=== PATIENT | male | born 1970 | race Hispanic/Latino ===

== ENCOUNTER 2018-06-17 18:35 | Emergency (ER) | payer BC, SELFPAY ==
[2018-06-17 21:02] LABS: Absolute Lymphocytes (CBC) 2.3 K/uL (0.7-4.9); Absolute Monocytes 0.5 K/uL (0.1-1.3); Absolute Neutrophil 4.4 K/uL (1.8-8.0); Basophils % 0.8 % (0-1.3); Eosinophils % 2.5 % (0-4.4); Hematocrit 40.5 % (39.6-49.0); Lymphocytes % 31.2 % (15.3-44.8); MCH 32.3 pg (27.0-35.0); MCV 90.6 fL (80-100); Monocytes % 6.5 % (3.3-12.3); RBC Red Blood Cell Count 4.47 M/uL (4.33-5.43)
[2018-06-17 21:21] LABS: BUN Blood Urea Nitrogen 19 mg/dL (7-18); Bicarbonate 27 mmol/L (21-32); Glucose Level 119 mg/dL (74-106); Potassium 3.8 mmol/L (3.5-5.1); Sodium Level 139 mmol/L (136-145)
--- NOTE | 2018-06-17 21:28 | EDPHYS ---
Physician Documentation [facility] Name: Victorino Alejo Age: 47 yrs Sex: Male : 1970 Arrival Date: 06/17/2018 Time: 18:41 Bed 10 Private MD: ED Physician Bud Lopez HPI: 06/17 21:23 This 47 yrs old Male presents to ER via Ambulatory with complaints of Leg gs Swelling, Toe Injury. 21:23 The complaints affect the right foot, Right fifth toenail. Context: avulsion of nail. gs Onset: The symptoms/episode began/occurred 2 day(s) ago. Associated signs and symptoms: Pertinent negatives: calf tenderness, fever, warmth. Severity of symptoms: At their worst the symptoms were mild, in the emergency department the symptoms are unchanged. The patient has not experienced similar symptoms in the past. Historical: - Allergies: 19:33 No Known Allergies; aj - Home Meds: 19:33 None [Active]; aj - PMHx: 19:33 None; aj - PSHx: 19:33 Appendectomy; aj - Immunization history:: Last tetanus immunization: unknown. - Social history:: Smoking status: Patient/guardian denies using tobacco. - Ebola Screening: : Patient negative for fever greater than or equal to 101.5 degrees Fahrenheit, and additional compatible Ebola Virus Disease symptoms Patient denies exposure to infectious person Patient denies travel to an Ebola-affected area in the 21 days before illness onset No symptoms or risks identified at this time. ROS: 21:23 MS/extremity: Positive for bl extremity edema, for 2 weeks. gs 21:23 Skin: Negative for cellulitis. 21:23 All other systems are negative. Exam: 21:23 Head/Face: Normocephalic, atraumatic. Eyes: Pupils equal round and reactive to light, gs extra-ocular motions intact. Lids and lashes normal. Conjunctiva and sclera are non-icteric and not injected. Cornea within normal limits. Periorbital areas with no swelling, redness, or edema. ENT: Nares patent. No nasal discharge, no septal abnormalities noted. Tympanic membranes are normal and external auditory canals are clear. Oropharynx with no redness, swelling, or masses, exudates, or evidence of obstruction, uvula midline. Mucous membranes moist. Neck: Trachea midline, no thyromegaly or masses palpated, and no cervical lymphadenopathy. Supple, full range of motion without nuchal rigidity, or vertebral point tenderness. No Meningismus. Chest/axilla: Normal chest wall appearance and motion. Nontender with no deformity. No lesions are appreciated. Cardiovascular: Regular rate and rhythm with a normal S1 and S2. No gallops, murmurs, or rubs. Normal PMI, no JVD. No pulse deficits. Respiratory: Lungs have equal breath sounds bilaterally, clear to auscultation and percussion. No rales, rhonchi or wheezes noted. No increased work of breathing, no retractions or nasal flaring. Abdomen/GI: Soft, non-tender, with normal bowel sounds. No distension or tympany. No guarding or rebound. No evidence of tenderness throughout. Skin: Warm, dry with normal turgor. Normal color with no rashes, no lesions, and no evidence of cellulitis. Neuro: Awake and alert, GCS 15, oriented to person, place, time, and situation. Cranial nerves II-XII grossly intact. Motor strength 5/5 in all extremities. Sensory grossly intact. Cerebellar exam normal. Normal gait. 21:23 Constitutional: The patient appears alert, awake. 21:23 Musculoskeletal/extremity: Circulation is intact in all extremities. Edema, 1+ to the left ankle and right ankle is noted, Sensation intact. Nails: complete avulsion, small toenali. Vital Signs: 19:33 BP 130 / 71; Pulse 83; Resp 16; Temp 98.2; Pulse Ox 97% on R/A; Weight 117.93 kg; aj Height 5 ft. 7 in. (170.18 cm); 19:33 Body Mass Index 40.72 (117.93 kg, 170.18 cm) aj MDM: 20:38 Patient medically screened. 21:23 Data reviewed: vital signs, nurses notes. 21:28 Counseling: I had a detailed discussion with the patient and/or guardian regarding: the gs presence of at least one elevated blood pressure reading (>120/80) during this emergency department visit. Special discussion: I have referred the patient to see his PCP for further evaluation of high blood pressure. 06/17 20:38 Order name: CBC with Diff; Complete Time: 21:23 06/17 20:38 Order name: Basic Metabolic Panel; Complete Time: 21:23 Administered Medications: 21:44 Drug: KeFLEX 500 mg Route: PO; 22:01 Follow up: Response: No adverse reaction; No change in condition Disposition: 06/17/18 21:27 Discharged to Home. Impression: complete avulsion right 5th toenail. - Condition is Stable. - Discharge Instructions: Edema, Fingernail or Toenail Removal, Adult. - Prescriptions for Keflex 500 mg Oral Capsule - take 1 capsule by ORAL route every 12 hours for 5 days; 10 capsule. - Work release form, Medication Reconciliation Form, Thank You Letter, Antibiotic Education, Prescription Opioid Use form. - Follow up: Private Physician; When: 2 - 3 days; Reason: Re-evaluation by your physician. Signatures: Dispatcher [employer] EDSarahi Hernandez RN RN Lou Brandon RN RN Bud Lopez MD MD Corrections: (The following items were deleted from the chart) 22:01 21:27 06/17/2018 21:27 Discharged to Home. Impression: complete avulsion right 5th toenail. Condition is Stable. Forms are Medication Reconciliation Form, Thank You Letter, Antibiotic Education, Prescription Opioid Use. Follow up: Private Physician; When: 2 - 3 days; Reason: Re-evaluation by your physician.
--- NOTE | 2018-06-17 21:28 | ER ---
Nurse's Notes [facility] Name: Victorino Alejo Age: 47 yrs Sex: Male : 1970 Arrival Date: 06/17/2018 Time: 18:41 Bed 10 Private MD: Diagnosis: complete avulsion right 5th toenail Presentation: 06/17 19:31 Presenting complaint: Patient states: Swelling to bilateral legs for 2 days. Also aj reports kicking furniture with right 5 th toe and losing nail 3 days ago. Patient ambulated with steady gait, pushing in wheelchair in ER lobby. Transition of care: patient was not received from another setting of care. Onset of symptoms was June 13, 2018. Risk Assessment: Do you want to hurt yourself or someone else? Patient reports no desire to harm self or others. Initial Sepsis Screen: Does the patient meet any 2 criteria? No. Patient's initial sepsis screen is negative. Does the patient have a suspected source of infection? No. Patient's initial sepsis screen is negative. Care prior to arrival: None. 19:31 Method Of Arrival: Ambulatory 19:31 Acuity: JIMMY 4 Triage Assessment: 19:33 General: Appears in no apparent distress. comfortable, Behavior is calm, cooperative, aj appropriate for age. Pain: Complains of pain in Right fifth toenail. Neuro: Level of Consciousness is awake, alert, obeys commands, Oriented to person, place, time, situation, Appropriate for age. Cardiovascular: Edema is 1+ to left midcalf, left ankle, right midcalf and right ankle. Respiratory: Airway is patent Respiratory effort is even, unlabored, Respiratory pattern is regular, symmetrical. Derm: Skin is intact, is healthy with good turgor, Skin is pink, warm \T\ dry. normal. Musculoskeletal: Circulation, motion, and sensation intact. Range of motion: intact in all extremities. Historical: - Allergies: 19:33 No Known Allergies; aj - Home Meds: 19:33 None [Active]; aj - PMHx: 19:33 None; aj - PSHx: 19:33 Appendectomy; aj - Immunization history:: Last tetanus immunization: unknown. - Social history:: Smoking status: Patient/guardian denies using tobacco. - Ebola Screening: : Patient negative for fever greater than or equal to 101.5 degrees Fahrenheit, and additional compatible Ebola Virus Disease symptoms Patient denies exposure to infectious person Patient denies travel to an Ebola-affected area in the 21 days before illness onset No symptoms or risks identified at this time. Screenin:30 Abuse screen: Denies threats or abuse. Nutritional screening: No deficits noted. fc Tuberculosis screening: No symptoms or risk factors identified. Fall Risk None identified. Assessment: 20:30 General: Appears uncomfortable, obese, Behavior is calm, cooperative, appropriate for fc age. Pain: Complains of pain in right lower leg and foot Pain currently is 8 out of 10 on a pain scale. Quality of pain is described as aching, pressure, Pain began 2-3 days ago. Is continuous, Aggravated by increased activity, repositioning, weight bearing. Neuro: Level of Consciousness is awake, alert, obeys commands, Oriented to person, place, time, situation. Cardiovascular: No deficits noted. Respiratory: No deficits noted. GI: No deficits noted. : No deficits noted. EENT: No deficits noted. Derm: Skin is pink, warm \T\ dry. Musculoskeletal: Circulation, motion, and sensation intact. Capillary refill < 3 seconds, Range of motion: intact in all extremities, Swelling present in right lower leg and foot Reports pain in right lower leg. 20:35 Reassessment: Dr Lopez in to see and examine pt. 21:35 Reassessment: Dr Lopez in to see and talk to pt re: lab results. Pt to get dose of fc antibiotics prior to discharge. Vital Signs: 19:33 BP 130 / 71; Pulse 83; Resp 16; Temp 98.2; Pulse Ox 97% on R/A; Weight 117.93 kg; aj Height 5 ft. 7 in. (170.18 cm); 19:33 Body Mass Index 40.72 (117.93 kg, 170.18 cm) aj ED Course: 18:41 Patient arrived in ED. mr 19:33 Triage completed. aj 19:33 Arm band placed on left wrist. Patient placed in waiting room, Patient notified of wait aj time. 20:23 Bud Lopez MD is Attending Physician. gs 20:30 Patient has correct armband on for positive identification. Call light in reach. fc 20:30 No provider procedures requiring assistance completed. fc 20:57 Initial lab(s) drawn, by me, sent to lab. ms 22:01 Patient did not have IV access during this emergency room visit. Administered Medications: : Drug: KeFLEX 500 mg Route: PO; 22: Follow up: Response: No adverse reaction; No change in condition Outcome: : Discharge ordered by . 22: Discharged to home ambulatory, with family. 22: Condition: good 22: Discharge instructions given to patient, family, Instructed on discharge instructions, follow up and referral plans. medication usage, wound care, Demonstrated understanding of instructions, follow-up care, medications, wound care, Prescriptions given X 1. 22:01 Patient left the ED. Signatures: Sarahi Posada RN RN aj Rivera, Mary mr Lou Hernandez RN Yumiko Becerra ms, Gregory, MD MD
[2018-06-17] MEDS ORDERED: CEPHALEXIN 250 MG CAP ONE (21:48)
== END 2018-06-17 22:01 | disposition home or self-care (01) ==
LOC: ER 18:35
DX: S91.204A Unspecified open wound of right lesser toe(s) with damage to nail, initial encounter (principal); X58.XXXA Exposure to other specified factors, initial encounter; Y93.9 Activity, unspecified; Y92.9 Unspecified place or not applicable
CPT/HCPCS: 36415; 80048; 85025; 99283

== ENCOUNTER 2019-08-29 23:13 | Emergency (ER) | payer BC, SELFPAY ==
[2019-08-30 00:18] LABS: Absolute Lymphocytes (CBC) 3.2 K/uL (0.7-4.9); Basophils % 0.7 % (0-1.3); Hematocrit 41.7 % (39.6-49.0); Lymphocytes % 31.9 % (15.3-44.8); MPV 9.5 fL (7.6-11.3); RBC Red Blood Cell Count 4.59 M/uL (4.33-5.43)
[2019-08-30 00:30] LABS: ALT/SGPT 33 U/L (12-78); AST/SGOT 22 U/L (15-37); Albumin 3.7 g/dL (3.4-5.0); Alkaline Phosphatase 83 U/L (45-117); BUN Blood Urea Nitrogen 26 mg/dL (7-18); Bicarbonate 28 mmol/L (21-32); Bilirubin Direct < 0.1 mg/dL (0-0.2); Bilirubin Total 0.3 mg/dL (0.2-1.0); Glucose Level 97 mg/dL (74-106); Lipase 133 U/L (73-393); Potassium 3.9 mmol/L (3.5-5.1); Protein, Total 7.4 g/dL (6.4-8.2); Sodium Level 139 mmol/L (136-145)
--- NOTE | 2019-08-30 02:31 | ER ---
Nurse's Notes [facility] Name: Victorino Alejo Age: 49 yrs Sex: Male : 1970 Arrival Date: 08/29/2019 Time: 23:16 Bed 15 Private MD: Diagnosis: Abdominal tenderness Presentation: 08/29 23:27 Presenting complaint: Patient states: i have LLQ pain for a year now but worse today. i mg2 was seen by a doctor before and they said something about my pancreas but i never followed up. Transition of care: patient was not received from another setting of care. Onset of symptoms was August 2019. Risk Assessment: Do you want to hurt yourself or someone else? Patient reports no desire to harm self or others. Initial Sepsis Screen: Does the patient meet any 2 criteria? No. Patient's initial sepsis screen is negative. Does the patient have a suspected source of infection? No. Patient's initial sepsis screen is negative. Care prior to arrival: None. 23:27 Method Of Arrival: Ambulatory mg2 23:27 Acuity: JIMMY 3 mg2 Historical: - Allergies: 23:29 No Known Allergies; mg2 - Home Meds: 23:29 None [Active]; mg2 - PMHx: 23:29 None; mg2 - PSHx: 23:29 Appendectomy; mg2 - Immunization history:: Flu vaccine is not up to date. - Coronavirus screen:: The patient has NOT traveled to [place], [place], or [place] in the past 14 days. Proceed with normal triage process as indicated. The patient has NOT had contact with known/suspected case of Coronavirus? Proceed with normal triage procedures. - Social history:: Smoking status: Patient denies any tobacco usage or history of. Patient uses alcohol, weekly. Patient/guardian denies using street drugs, IV drugs. - Ebola Screening: : No symptoms or risks identified at this time. Screenin:38 Abuse screen: Denies threats or abuse. Nutritional screening: No deficits noted. jb4 Tuberculosis screening: No symptoms or risk factors identified. Fall Risk None identified. Assessment: 23:38 General: Appears in no apparent distress. comfortable, Behavior is calm, cooperative, jb4 appropriate for age. Pain: Complains of pain in left lower quadrant Pain does not radiate. Pain currently is 8 out of 10 on a pain scale. Quality of pain is described as pressure, Pain began over a year ago. Neuro: Level of Consciousness is awake, alert, obeys commands, Oriented to person, place, time, situation. Cardiovascular: Patient's skin is warm and dry. Respiratory: Airway is patent Respiratory effort is even, unlabored, Respiratory pattern is regular, symmetrical. GI: Abdomen is flat, non-distended, Bowel sounds present X 4 quads. Abd is soft X 4 quads Abd is non tender in right upper quadrant, left upper quadrant and right lower quadrant Abdomen is tender to palpation in left lower quadrant. : No signs and/or symptoms were reported regarding the genitourinary system. EENT: No signs and/or symptoms were reported regarding the EENT system. Derm: Skin is intact, Skin is pink, warm \T\ dry. Musculoskeletal: Circulation, motion, and sensation intact. Range of motion: intact in all extremities. 08/30 00:45 Reassessment: Patient appears in no apparent distress at this time. Patient and/or jb4 family updated on plan of care and expected duration. Pain level reassessed. Patient is alert, oriented x 3, equal unlabored respirations, skin warm/dry/pink. 01:43 Reassessment: Patient appears in no apparent distress at this time. Patient and/or jb4 family updated on plan of care and expected duration. Pain level reassessed. Patient is alert, oriented x 3, equal unlabored respirations, skin warm/dry/pink. 02:42 Reassessment: Patient appears in no apparent distress at this time. Patient and/or jb4 family updated on plan of care and expected duration. Pain level reassessed. Patient is alert, oriented x 3, equal unlabored respirations, skin warm/dry/pink. Vital Signs: 08/29 23:28 BP 139 / 83; Pulse 70; Resp 18; Temp 97.6; Pulse Ox 100% on R/A; Weight 122.47 kg; mg2 Height 5 ft. 7 in. (170.18 cm); 08/30 00:45 BP 130 / 67; Pulse 62; Resp 16; Pulse Ox 98% on R/A; jb4 01:43 BP 125 / 76; Pulse 62; Resp 16; Pulse Ox 94% on R/A; jb4 02:45 BP 131 / 92; Pulse 62; Resp 16; Pulse Ox 100% on R/A; jb4 08/29 23:28 Body Mass Index 42.29 (122.47 kg, 170.18 cm) mg2 ED Course: 08/29 23:16 Patient arrived in ED. cl3 23:22 Samson Cerda MD is Attending Physician. tw4 23:28 Triage completed. mg2 23:28 Arm band placed on. mg2 23:29 Patient has correct armband on for positive identification. mg2 23:31 Roberto Ac RN is Primary Nurse. jb4 23:55 Initial lab(s) drawn, by me, sent to lab. Inserted saline lock: 20 gauge in right jb4 antecubital area, using aseptic technique. Blood collected. 02 02:48 No provider procedures requiring assistance completed. IV discontinued, intact, jb4 bleeding controlled, No redness/swelling at site. Pressure dressing applied. Administered Medications: 02:41 Drug: TORadol 30 mg Route: IVP; Site: right antecubital; jb4 02:49 Follow up: Response: No adverse reaction; Pain is decreased jb4 Outcome: 02:29 Discharge ordered by . tw4 02:48 Discharged to home ambulatory. jb4 02:48 Condition: stable 02:48 Discharge instructions given to patient, family, Instructed on discharge instructions, follow up and referral plans. medication usage, Demonstrated understanding of instructions, follow-up care, medications, Prescriptions given X 1. 02:49 Patient left the ED. jb4 Signatures: Roberto Ac RN RN jb4 Samson Cerda MD MD tw4 Artem Davenport RN RN mg2 Chapin Castillo cl3 Corrections: (The following items were deleted from the chart) 08/29 23:43 23:33 General: Appears in no apparent distress. comfortable, Behavior is calm, jb4 cooperative, appropriate for age, jb4 23:43 23:33 Pain: Complains of pain in left lower quadrant Pain does not radiate. Pain jb4 currently is 8 out of 10 on a pain scale. Quality of pain is described as pressure, Pain began over a year jb4 :43 23:33 Neuro: Level of Consciousness is awake, alert, obeys commands, Oriented to jb4 person, place, time, situation, jb4
--- NOTE | 2019-08-30 02:32 | EDPHYS ---
Physician Documentation [facility] Name: Victoirno Alejo Age: 49 yrs Sex: Male : 1970 Arrival Date: 08/29/2019 Time: 23:16 Bed 15 Private MD: ED Physician Samson Cerda HPI: 08/30 02:34 This 49 yrs old Male presents to ER via Ambulatory with complaints of Pain On tw4 Left Side. 02:34 The patient presents with abdominal pain. Onset: The symptoms/episode began/occurred 1 tw4 year(s) ago, and became worse today. The symptoms do not radiate. Associated signs and symptoms: none. The symptoms are described as dull. Modifying factors: The symptoms are alleviated by nothing, the symptoms are aggravated by pressure. The patient has not experienced similar symptoms in the past. Historical: - Allergies: 08/29 23:29 No Known Allergies; mg2 - Home Meds: 23:29 None [Active]; mg2 - PMHx: 23:29 None; mg2 - PSHx: 23:29 Appendectomy; mg2 - Immunization history:: Flu vaccine is not up to date. - Coronavirus screen:: The patient has NOT traveled to [place], [place], or [place] in the past 14 days. Proceed with normal triage process as indicated. The patient has NOT had contact with known/suspected case of Coronavirus? Proceed with normal triage procedures. - Social history:: Smoking status: Patient denies any tobacco usage or history of. Patient uses alcohol, weekly. Patient/guardian denies using street drugs, IV drugs. - Ebola Screening: : No symptoms or risks identified at this time. ROS: 08/30 02:34 Constitutional: Negative for fever, chills, and weight loss, Eyes: Negative for injury, tw4 pain, redness, and discharge, Cardiovascular: Negative for chest pain, palpitations, and edema, Respiratory: Negative for shortness of breath, cough, wheezing, and pleuritic chest pain. Back: Negative for injury and pain, MS/Extremity: Negative for injury and deformity, Skin: Negative for injury, rash, and discoloration, Neuro: Negative for headache, weakness, numbness, tingling, and seizure. Abdomen/GI: Positive for abdominal pain, Negative for nausea and vomiting, nausea, vomiting, and diarrhea, nausea, vomiting, diarrhea, constipation, abdominal cramps, abdominal distension, anorexia, dysphagia, hematemesis, black/tarry stool. Exam: 02:34 Constitutional: This is a well developed, well nourished patient who is awake, alert, tw4 and in no acute distress. Head/Face: Normocephalic, atraumatic. Chest/axilla: Normal chest wall appearance and motion. Nontender with no deformity. No lesions are appreciated. Cardiovascular: Regular rate and rhythm with a normal S1 and S2. No gallops, murmurs, or rubs. Normal PMI, no JVD. No pulse deficits. Respiratory: Lungs have equal breath sounds bilaterally, clear to auscultation and percussion. No rales, rhonchi or wheezes noted. No increased work of breathing, no retractions or nasal flaring. Back: No spinal tenderness. No costovertebral tenderness. Full range of motion. MS/ Extremity: Pulses equal, no cyanosis. Neurovascular intact. Full, normal range of motion. Neuro: Awake and alert, GCS 15, oriented to person, place, time, and situation. Cranial nerves II-XII grossly intact. Motor strength 5/5 in all extremities. Sensory grossly intact. Cerebellar exam normal. Normal gait. 02:34 Abdomen/GI: Inspection: abdomen appears normal, Bowel sounds: normal, Palpation: moderate abdominal tenderness, in the left lower quadrant. Vital Signs: 08/29 23:28 BP 139 / 83; Pulse 70; Resp 18; Temp 97.6; Pulse Ox 100% on R/A; Weight 122.47 kg; mg2 Height 5 ft. 7 in. (170.18 cm); 08/30 00:45 BP 130 / 67; Pulse 62; Resp 16; Pulse Ox 98% on R/A; jb4 01:43 BP 125 / 76; Pulse 62; Resp 16; Pulse Ox 94% on R/A; jb4 02:45 BP 131 / 92; Pulse 62; Resp 16; Pulse Ox 100% on R/A; jb4 08/29 23:28 Body Mass Index 42.29 (122.47 kg, 170.18 cm) mg2 MDM: 08/29 23:40 Patient medically screened. tw4 08/30 02:34 Differential diagnosis: diverticulitis, non-specific abd pain, Pyelonephritis, tw4 Ureterolithiasis, urinary tract infection. Data reviewed: vital signs, nurses notes. Data reviewed: lab test result(s), cardiac enzymes, CBC, hepatic panel, radiologic studies, CT scan. Data interpreted: Pulse oximetry: Interpretation: normal. Counseling: I had a detailed discussion with the patient and/or guardian regarding: the historical points, exam findings, and any diagnostic results supporting the discharge/admit diagnosis, lab results, radiology results. Medication response: Toradol markedly relieved the patient's pain. Response to treatment: the patient's symptoms have markedly improved after treatment, and as a result, I will discharge patient. Special discussion: Based on the patient's Hx, exam, and Dx evaluation, there is no indication for emergent surgery or inpatient Tx. It is understood by the patient/guardian that if the Sx's persist or worsen they need to return immediately for re-evaluation. I discussed with the patient/guardian in detail that at this point there is no indication for admission to the hospital. It is understood, however, that if the symptoms persist or worsen the patient needs to return immediately for re-evaluation. 08/29 23:42 Order name: Basic Metabolic Panel 08/29 23:42 Order name: CBC with Diff 08/29 23:42 Order name: Creatinine for Radiology 08/29 23:42 Order name: Hepatic Function 08/29 23:42 Order name: Lipase 08/30 00:22 Order name: CBC with Automated Diff; Complete Time: 02: EDMS 08/30 02:31 Interpretation: Within normal limits. 08/30 00:02 Order name: CT Abd/Pelvis - IV Contrast Only 08/30 00:29 Order name: Creatinine (Radiology Only); Complete Time: 02: EDMS 08/30 00:30 Order name: Basic Metabolic Panel; Complete Time: 02: EDMS 08/30 02:31 Interpretation: Normal except: GFR 58; BUN 26; CRE 1.31. 08/30 00:30 Order name: Liver (Hepatic) Function; Complete Time: 02: EDMS 08/30 02:31 Interpretation: Normal except: GLOB 3.7; A/G 1.0. 08/30 00:30 Order name: Lipase; Complete Time: : EDMS 08/30 02:32 Interpretation: Within normal limits: LIP 133. tw4 08/30 02:11 Order name: Urine Dipstick--Ancillary (enter results) 2 08/30 02:48 Order name: Urine Dipstick-Ancillary [facility] 08/29 23:42 Order name: IV Saline Lock; Complete Time: 00:01 [facility] 08/29 23:42 Order name: Labs collected and sent; Complete Time: 00:01 [facility] 08/30 02:02 Order name: Urine Dipstick-Ancillary (obtain specimen); Complete Time: 02:07 [facility] Administered Medications: 02:41 Drug: TORadol 30 mg Route: IVP; Site: right antecubital; [facility] 02:49 Follow up: Response: No adverse reaction; Pain is decreased 4 Disposition: 08/30/19 02:29 Discharged to Home. Impression: Abdominal tenderness. - Condition is Stable. - Discharge Instructions: Abdominal Pain, Adult, Ujtx-mg-Mges. - Prescriptions for Bentyl 20 mg Oral Tablet - take 1 tablet by ORAL route every 6 hours As needed; 20 tablet. - Work release form, Medication Reconciliation Form, Thank You Letter, Antibiotic Education, Prescription Opioid Use form. - Follow up: Private Physician; When: Upon discharge from the Emergency Department; Reason: Recheck today's complaints, Continuance of care, Re-evaluation by your physician. - Problem is new. - Symptoms have improved. Signatures: Dispatcher [employer] [facility] Roberto Ac RN RN jb4 Samson Cerda MD MD tw4 Artem Davenport RN RN mg2 Corrections: (The following items were deleted from the chart) 02:49 02:29 08/30/2019 02:29 Discharged to Home. Impression: Abdominal tenderness. Condition jb4 is Stable. Forms are Medication Reconciliation Form, Thank You Letter, Antibiotic Education, Prescription Opioid Use. Follow up: Private Physician; When: Upon discharge from the Emergency Department; Reason: Recheck today's complaints, Continuance of care, Re-evaluation by your physician. Problem is new. Symptoms have improved. tw4
[2019-08-30] MEDS ORDERED: KETOROLAC 30 MG/ML INJ ONE (02:35)
[2019-08-30 02:48] LABS: Urine Blood NEGATIVE (NEG); Urine Glucose NEGATIVE (NEG); Urine Protein NEGATIVE (NEG); Urine pH 5.5 (5.0-7.0)
--- NOTE | 2019-08-30 10:57 | RAD REPORT ---
EXAM DESCRIPTION: Abdomen Pelvis W Contrast CLINICAL HISTORY: ABD PAIN TECHNIQUE: Contiguous axial images obtained through the abdomen and pelvis following the uneventful administration of IV contrast. Coronal and sagittal reformatted images were provided. This exam was performed according to our departmental dose-optimization program, which includes autom ated exposure control, adjustment of the mA and/or kV according to patient size and/or use of iterati ve reconstruction technique. COMPARISON: None available for comparison. FINDINGS: Lung bases: 3 mm lingular nodule (series 501 image 9). Liver: The liver is diffusely low in density compatible with steatosis. Gallbladder and biliary system: Unremarkable Pancreas: Unremarkable Spleen: Unremarkable Adrenals: Unremarkable Kidneys: Normal renal cortical enhancement. No calculi. No hydronephrosis. Bowel: Moderate stool No obstruction. No appreciable mucosal thickening. Appendix: The appendix is not definitively visualized. No findings to suggest acute appendicitis. Urinary bladder: Mild circumferential urinary bladder wall thickening. Reproductive: The prostate is mildly enlarged. Lymph nodes: No pathologically enlarged lymph nodes. Peritoneum: No focal fluid collection. No free air. Vessels: No abdominal aortic aneurysm. Abdominal wall: Small to moderate fat-containing periumbilical hernia. Minimal infiltrative changes w ithin and subjacent to the hernia. Bones: Multilevel spondylosis. No acute fracture. IMPRESSION: 1. Mild circumferential urinary bladder wall thickening. This may be related to bladde r outlet obstruction. Please correlate clinically for cystitis. 2. Small to moderate fat-containing periumbilical hernia. Minimal infiltrative changes within and s ubjacent to the hernia. The possibility of incarceration is not excluded. 3. 3.0 mm solid lingular nodule detected on incomplete chest CT. No routine follow-up imaging is re commended. These guidelines do not apply to immunocompromised patients and patients with cancer. Foll ow up in patients with significant comorbidities as clinically warranted. For lung cancer screening, adhere to Lung-RADS guidelines. Reference: Radiology. 2017; 284(1):228-43. 4. Other findings as above. Electronically signed by: Hang Jimenez MD 08/30/2019 1:57 AM GRAIN ROASTER Due to temporary technical issues with the PACS/Fluency reporting system, reports are being signed by the in house radiologist as a courtesy to ensure prompt reporting. The interpreting radiologist is f ully responsible for the content of the report.
[2019-09-01 02:10] VITALS: TEMP 97.6
[2019-09-01 02:37] VITALS: BP 131/92; O2SAT 100
== END 2019-08-30 02:49 | disposition home or self-care (01) ==
LOC: ER 23:13
DX: R10.819 Abdominal tenderness, unspecified site (principal)
CPT/HCPCS: 85025; 80048; 36415; 80076; 81003; 83690; 74177; 96374; 99284; Q9967

== ENCOUNTER 2021-07-23 16:00 | Emergency (ER) | payer BC ==
[2021-07-23 16:50] LABS: Urine Blood 1+ (Negative); Urine Glucose Negative (Negative); Urine Protein 1+ (Negative); Urine Specific Gravity >=1.030 (1.005-1.030)
[2021-07-23 17:07] LABS: Urine Bacteria 20-50 /HPF (NONE SEEN); Urine RBC <5 /HPF (NONE SEEN)
[2021-07-23 17:08] LABS: Urine Mucus 2+ /HPF (NONE SEEN)
[2021-07-23 17:45] LABS: SARS-COV-2 RT PCR NEGATIVE (NEGATIVE)
[2021-07-23] MEDS ORDERED: MORPHINE 4 MG/ML SYR ONE (19:41)
[2021-07-23] MEDS ORDERED: ONDANSETRON 4 MG/2 ML VIAL ONE (19:41)
[2021-07-23 20:53] LABS: Absolute Lymphocytes (CBC) 1.8 K/uL (0.7-4.9); Hematocrit 43.6 % (39.6-49.0); Lymphocytes % 23.3 % (15.3-44.8); MPV 8.9 fL (7.6-11.3); RBC Red Blood Cell Count 4.82 M/uL (4.33-5.43)
[2021-07-23 21:20] LABS: ALT/SGPT 60 U/L (12-78); AST/SGOT 34 U/L (15-37); Albumin 3.4 g/dL (3.4-5.0); Alkaline Phosphatase 100 U/L (45-117); BUN Blood Urea Nitrogen 11 mg/dL (7-18); Bicarbonate 21 mmol/L (21-32); Bilirubin Direct < 0.1 mg/dL (0-0.2); Bilirubin Total 0.4 mg/dL (0.2-1.0); Glucose Level 98 mg/dL (74-106); Lipase 87 U/L (73-393); Potassium 4.2 mmol/L (3.5-5.1); Protein, Total 7.4 g/dL (6.4-8.2); Sodium Level 134 mmol/L (136-145)
--- NOTE | 2021-07-23 22:12 | RAD REPORT ---
EXAM DESCRIPTION: CTAbdomen Pelvis W Contrast - 07/23/2021 9:55 pm CLINICAL HISTORY: left flank pain COMPARISON: Abdomen Pelvis W Contrast dated 08/30/2019 TECHNIQUE: CT of the abdomen and pelvis was performed. All CT scans are performed using dose optimization technique as appropriate and may include automated exposure control or mA/KV adjustment according to patient size. FINDINGS: Lower chest: No acute abnormality. Liver: No acute abnormality or suspicious lesions. Hepatic steatosis. Biliary: No biliary ductal dilatation. Stomach: No significant focal abnormality. Duodenum: No significant focal abnormality. Pancreas: No significant abnormality. Spleen: No significant abnormality. Adrenal: No suspicious lesions. Kidney/ureter: No hydronephrosis. No renal calculi. Retroperitoneum: No retroperitoneal adenopathy. Vascular: No aneurysm. Bowel: No significant focal abnormality. No appendix identified Peritoneum: No ascites or free air. Small fat containing umbilical hernia. Bladder: Grossly unremarkable. Reproductive: No adnexal masses. Bones: No acute fracture. Other: n/a IMPRESSION: No acute intra-abdominal or pelvic finding. No urinary tract calculi.
--- NOTE | 2021-07-23 22:20 | ER ---
Nurse's Notes [facility] Name: Victorino Alejo Age: 51 yrs Sex: Male : 1970 Arrival Date: 07/23/2021 Time: 16:03 Bed 4 Private MD: Diagnosis: UTI/ Urinary tract infection, site not specified;Acute upper respiratory infection, unspecified Presentation: 07/23 16:29 Chief complaint: Patient states: Congestion for 3 days. L flank pain off/on for 10 ll1 days, frequent urination. No fevers. Coronavirus screen: Vaccine status: Patient reports receiving the 2nd dose of the covid vaccine. Client denies travel out of the [place] in the last 14 days. congestion, cough unrelated to allergies, fatigue, muscle pain, Client presents with at least one sign or symptom that may indicate coronavirus-19. Standard/surgical mask placed on the client. Ebola Screen: Patient denies travel to an Ebola-affected area in the 21 days before illness onset. Initial Sepsis Screen: Does the patient meet any 2 criteria? No. Patient's initial sepsis screen is negative. Does the patient have a suspected source of infection? Yes: Productive cough/pneumonia. Risk Assessment: Do you want to hurt yourself or someone else? Patient reports no desire to harm self or others. Onset of symptoms was July 13, 2021. 16:29 Method Of Arrival: Ambulatory ll1 16:29 Acuity: JIMMY 3 ll1 Historical: - Allergies: 16:31 No Known Allergies; ll1 - PMHx: 16:31 None; ll1 - PSHx: 16:31 None; ll1 - Immunization history:: Client reports receiving the 2nd dose of the Covid vaccine, Flu vaccine status is unknown. - Social history:: Smoking status: Patient denies any tobacco usage or history of. Screenin:42 Abuse screen: Denies threats or abuse. Nutritional screening: No deficits noted. al4 Tuberculosis screening: No symptoms or risk factors identified. Fall Risk No fall in past 12 months (0 pts). No IV (0 pts). Ambulatory Aid- None/Bed Rest/Nurse Assist (0 pts). Gait- Normal/Bed Rest/Wheelchair (0 pts) Mental Status- Oriented to own ability (0 pts). Total Sandoval Fall Scale indicates No Risk (0-24 pts). Assessment: 19:32 General: Appears in no apparent distress. comfortable, Behavior is calm, cooperative, al4 appropriate for age, Reports pain in LLQ for the past week along with increased urination. patient is also reporting SOB, congestion, and dry cough. patient denies N/V/D. Pain: Complains of pain in LLQ. Neuro: Level of Consciousness is awake, alert, obeys commands, Oriented to person, place, time, situation. Cardiovascular: Capillary refill < 3 seconds Patient's skin is warm and dry. Respiratory: Airway is patent Respiratory effort is even, unlabored, Respiratory pattern is regular, symmetrical. GI: GI: Bowel sounds present X 4 quads. Abdomen is tender to palpation LLQ. : Reports increased urination. : No signs and/or symptoms were reported regarding the genitourinary system. EENT: Reports head congestion, dry cough. Derm: No signs and/or symptoms reported regarding the dermatologic system. Musculoskeletal: No signs and/or symptoms reported regarding the musculoskeletal system. 20:00 Reassessment: Patient and/or family updated on plan of care and expected duration. Pain al4 level reassessed. Patient is alert, oriented x 3, equal unlabored respirations, skin warm/dry/pink. 21:00 Reassessment: Patient and/or family updated on plan of care and expected duration. Pain al4 level reassessed. Patient is alert, oriented x 3, equal unlabored respirations, skin warm/dry/pink. 22:13 Reassessment: Patient and/or family updated on plan of care and expected duration. Pain al4 level reassessed. Patient is alert, oriented x 3, equal unlabored respirations, skin warm/dry/pink. 22:32 Reassessment: patient and family stated that the physician came to bedside and updated al4 them on POC. . Vital Signs: 16:29 BP 148 / 99; Pulse 90; Resp 18; Temp 97.5; Pulse Ox 99% ; Weight 127.01 kg; Height 5 ll1 ft. 7 in. (170.18 cm); Pain 8/10; 19:37 BP 133 / 67; Pulse 80; Resp 18; Pulse Ox 97% ; al4 20:00 BP 121 / 69; Pulse 76; Resp 18; Pulse Ox 96% ; al4 21:00 BP 121 / 54; Pulse 73; Resp 18; Pulse Ox 93% ; al4 21:30 BP 119 / 60; Pulse 73; Resp 18; Pulse Ox 94% ; al4 22:33 BP 122 / 69; Pulse 74; Resp 18; Pulse Ox 100% ; al4 16:29 Body Mass Index 43.86 (127.01 kg, 170.18 cm) 1 ED Course: 16:03 Patient arrived in ED. mr 16:31 Triage completed. 1 16:31 Arm band placed on. 1 17:51 Adolph Hemphill PA is PHCP. [facility] 17:51 Shine Keller MD is Attending Physician. m 17:56 Will Talavera, LO is Primary Nurse. bp 19:43 Patient has correct armband on for positive identification. al4 20:30 Inserted saline lock: 20 gauge in left forearm, using aseptic technique. ,using aseptic al4 technique. inserted by Genny Cervantes RN. 21:55 CT Abd/Pelvis - IV Contrast Only In Process Unspecified. EDMS 22:19 Aniceto Boudreaux MD is Referral Physician. [facility] 22:34 No provider procedures requiring assistance completed. al4 22:43 IV discontinued, intact, bleeding controlled, No redness/swelling at site. Pressure al4 dressing applied. Administered Medications: 20:34 Drug: morphine 4 mg Route: IVP; Site: left forearm; al4 21:20 Follow up: Response: No adverse reaction; RASS: Alert and Calm (0) al4 20:34 Drug: Zofran (Ondansetron) 4 mg Route: IVP; Site: left forearm; al4 21:00 Follow up: Response: No adverse reaction al4 Outcome: 22:19 Discharge ordered by . [facility] 22:34 Discharged to home ambulatory, with family. al4 22:34 Condition: stable 22:34 Discharge instructions given to patient, family, Instructed on discharge instructions, follow up and referral plans. medication usage, Demonstrated understanding of instructions, follow-up care, medications. 22:44 Patient left the ED. al4 Addendum: 07/27/2021 07:12 Addendum: Culture Results: Positive urine culture. No further action required. Bacteria e b sensitive to prescribed antibiotic. Signatures: Dispatcher [employer] EDMS Adolph Hemphill PA PA jmm Rivera, Mary mr Will Talavera RN RN Piper Weldon Lynsay, RN RN ll1 Wisam Kerr al4 Corrections: (The following items were deleted from the chart) 07/23 16:31 16:29 Pulse 90bpm; Resp 18bpm; Pulse Ox 99%; Temp 97.5F; 127.01 kg; Height 5 ft. 7 in.; ll1 BMI: 43.8; Pain 8/10; ll1 19:42 19:32 GI: al4 al4 19:44 19:32 General: Reports pain in LLQ for the past week along with increased urination. al4 patient is also reporting SOB, congestion, and dry cough. patient denies N/V/D al4
--- NOTE | 2021-07-23 22:20 | EDPHYS ---
Physician Documentation [facility] Name: Victorino Alejo Age: 51 yrs Sex: Male : 1970 Arrival Date: 07/23/2021 Time: 16:03 Bed 4 Private MD: ED Physician Shine Keller HPI: 07/23 16:36 This 51 yrs old Male presents to ER via Ambulatory with complaints of jmm Abdominal Pain, Urinary Problem, Congestion. 16:36 The patient presents with abdominal pain in the left lower quadrant. Onset: The jmm symptoms/episode began/occurred gradually, 10 day(s) ago. The symptoms radiate to the left flank. The symptoms are described as achy. Modifying factors: The symptoms are alleviated by nothing, the symptoms are aggravated by coughing. The patient has not experienced similar symptoms in the past. Patient also complains of cough, congestion. . Historical: - Allergies: 16:31 No Known Allergies; ll1 - PMHx: 16:31 None; ll1 - PSHx: 16:31 None; ll1 - Immunization history:: Client reports receiving the 2nd dose of the Covid vaccine, Flu vaccine status is unknown. - Social history:: Smoking status: Patient denies any tobacco usage or history of. ROS: 16:36 Constitutional: Positive for body aches, chills, fatigue, fever. jmm 16:36 ENT: Positive for sinus congestion. 16:36 Respiratory: Positive for cough. 16:36 Abdomen/GI: Positive for abdominal pain. 16:36 Back: Positive for flank pain. 16:36 All other systems are negative. Exam: 16:36 Constitutional: This is a well developed, well nourished patient who is awake, alert, jmm and in no acute distress. Head/Face: atraumatic. Eyes: EOMI, no conjunctival erythema appreciated ENT: Moist Mucus Membranes Neck: Trachea midline, Supple Chest/axilla: Normal chest wall appearance and motion. Cardiovascular: Regular rate and rhythm. No edema appreciated Respiratory: Normal respirations, no respiratory distress appreciated 16:36 Back: Normal ROM Skin: General appearance color normal MS/ Extremity: Moves all extremities, no obvious deformities appreciated, no edema noted to the lower extremities Neuro: Awake and alert, normal gait Psych: Behavior is normal, Mood is normal, Patient is cooperative and pleasant 16:36 Abdomen/GI: Inspection: obese Bowel sounds: normal, Palpation: soft, mild abdominal tenderness, in the left lower quadrant. 16:36 Back: CVA tenderness, that is mild, is noted on the left. Vital Signs: 16:29 BP 148 / 99; Pulse 90; Resp 18; Temp 97.5; Pulse Ox 99% ; Weight 127.01 kg; Height 5 ll1 ft. 7 in. (170.18 cm); Pain 8/10; 19:37 BP 133 / 67; Pulse 80; Resp 18; Pulse Ox 97% ; al4 20:00 BP 121 / 69; Pulse 76; Resp 18; Pulse Ox 96% ; al4 21:00 BP 121 / 54; Pulse 73; Resp 18; Pulse Ox 93% ; al4 21:30 BP 119 / 60; Pulse 73; Resp 18; Pulse Ox 94% ; al4 22:33 BP 122 / 69; Pulse 74; Resp 18; Pulse Ox 100% ; al4 16:29 Body Mass Index 43.86 (127.01 kg, 170.18 cm) 1 MDM: 18:46 Patient medically screened. yomaira 22:17 Data reviewed: vital signs, nurses notes. Counseling: I had a detailed discussion with cheryl the patient and/or guardian regarding: the historical points, exam findings, and any diagnostic results supporting the discharge/admit diagnosis, lab results, the need for outpatient follow up, to return to the emergency department if symptoms worsen or persist or if there are any questions or concerns that arise at home. ED course: Patient is alert and non toxic in appearance in the ED. No signs of resp distress. patient advised to follow up with pcp and otherwise given strict return precautions. patient understood and agrees with the plan of care. . 07/23 16:50 Order name: Urine Dipstick-Ancillary; Complete Time: 17:55 EDMS 07/23 16:55 Order name: Urine Microscopic Only; Complete Time: 17:55 1 07/23 16:55 Order name: Urine Culture [facility] 07/23 17:49 Order name: COVID-19/FLU A+B/RSV; Complete Time: 17:55 EDMS 07/23 18:46 Order name: Basic Metabolic Panel; Complete Time: 21:34 [facility] 07/23 16:36 Order name: Urine Dipstick-Ancillary (obtain specimen); Complete Time: 16:54 kb 01/04 18:46 Order name: CBC with Diff; Complete Time: 20:58 [facility] 07/23 18:46 Order name: Hepatic Function; Complete Time: 21:34 [facility] 07/23 18:46 Order name: Lipase; Complete Time: 21:34 [facility] 07/23 18:46 Order name: IV Saline Lock; Complete Time: 19:45 [facility] 07/23 18:46 Order name: CT Abd/Pelvis - IV Contrast Only; Complete Time: 22:16 [facility] 07/23 18:46 Order name: Labs collected and sent; Complete Time: 21:31 [facility] Administered Medications: 20:34 Drug: morphine 4 mg Route: IVP; Site: left forearm; al4 21:20 Follow up: Response: No adverse reaction; RASS: Alert and Calm (0) al4 20:34 Drug: Zofran (Ondansetron) 4 mg Route: IVP; Site: left forearm; al4 21:00 Follow up: Response: No adverse reaction al4 Disposition: 07/24 07:41 Co-signature as Attending Physician, Shnie Keller MD I agree with the assessment and rn plan of care. Attestation: The patient's history, exam findings, diagnostics, and a summary of any interventions or procedures was reviewed in detail with Adolph RIGGINS. Disposition Summary: 07/23/21 22:19 Discharge Ordered Location: Home [facility] Condition: Stable [facility] Diagnosis - UTI/ Urinary tract infection, site not specified jmm - Acute upper respiratory infection, unspecified [facility] Followup: [facility] - With: Aniceto Boudreaux MD - When: 2 - 3 days - Reason: Recheck today's complaints, Continuance of care, Re-evaluation by your physician Discharge Instructions: - Discharge Summary Sheet [facility] - Upper Respiratory Infection, Adult jm - Urinary Tract Infection, Adult [facility] Forms: - Work release form [facility] - Medication Reconciliation Form [facility] - Thank You Letter [facility] - Antibiotic Education [facility] - Prescription Opioid Use [facility] Prescriptions: - Bromfed DM 2-30-10 mg/5 mL Oral syrup - take 10 milliliter by ORAL route every 4 hours; 200 milliliter; Refills: 0, [facility] Product Selection Permitted - cefdinir 300 mg Oral capsule - take 1 capsule by ORAL route every 12 hours for 10 days; 20 capsule; Refills: [facility] 0, Product Selection Permitted Signatures: Dispatcher [employer] EDMS Emily Girard, SENIOR ESCROW OFFICER-C SENIOR ESCROW OFFICER-Ckb Adolph Hemphill PA PA jmShine Salinas MD MD rn Lewis, Lynsay, RN RN ll1 Wisam Kerr Corrections: (The following items were deleted from the chart) 07/23 17:49 16:33 COVID-19/FLU A+B+MOL.LAB.BRZ ordered. EDMS EDMS
[2021-07-23 23:32] VITALS: TEMP 97.5
[2021-07-23 23:39] VITALS: BP 122/69; O2SAT 100
== END 2021-07-23 22:44 | disposition home or self-care (01) ==
LOC: ER 16:00
DX: N39.0 Urinary tract infection, site not specified (principal); J06.9 Acute upper respiratory infection, unspecified; Z20.822 Contact with and (suspected) exposure to COVID-19
CPT/HCPCS: 87088; 85025; 87086; 80048; 36415; 80076; 87077; 87186; 83690; 0241U; 74177; 96375; 96374; 99284; Q9967; J2405; 81003; 81015

== ENCOUNTER 2022-03-11 21:01 | Emergency (ER) | payer BC ==
--- NOTE | 2022-03-11 23:11 | ER ---
Nurse's Notes [facility] Name: Victorino Alejo Age: 51 yrs Sex: Male : 1970 Arrival Date: 03/11/2022 Time: 21:04 Bed 17 Private MD: Diagnosis: Acute upper respiratory infection, unspecified;SARS-associated coronavirus as the cause of diseases classified elsewhere Presentation: 03/11 21:42 Chief complaint: Patient states: My son and his kid live with me and both tested kd3 positive for COVID and now i have a headache and a runny nose. I think i have it now too. I have not ran a fever other than just feeling warm. Coronavirus screen: Vaccine status: Patient reports receiving the 1st dose of the Covid vaccine. Ebola Screen: No symptoms or risks identified at this time. Initial Sepsis Screen: Does the patient meet any 2 criteria? No. Patient's initial sepsis screen is negative. Does the patient have a suspected source of infection? No. Patient's initial sepsis screen is negative. Risk Assessment: Do you want to hurt yourself or someone else? Patient reports no desire to harm self or others. Onset of symptoms was March 11, 2022. 21:42 Method Of Arrival: Ambulatory kd3 21:42 Acuity: JIMMY 3 kd3 Triage Assessment: 21:44 General: Appears in no apparent distress. Behavior is calm, cooperative. Pain:. kd3 Historical: - Allergies: 21:44 No Known Allergies; kd3 - Home Meds: 21:44 None [Active]; kd3 - PMHx: 21:44 None; kd3 - Immunization history:: Adult Immunizations up to date. - Social history:: Smoking status: Patient denies any tobacco usage or history of. Screenin:45 Abuse screen: Denies threats or abuse. Denies injuries from another. Nutritional kd3 screening: No deficits noted. Tuberculosis screening: No symptoms or risk factors identified. Fall Risk None identified. Assessment: 23:27 General: Appears in no apparent distress. Behavior is calm, cooperative. kd3 Vital Signs: 21:42 BP 146 / 73; Pulse 79; Resp 18; Temp 99.1(O); Pulse Ox 97% on R/A; Weight 124.74 kg; kd3 Height 5 ft. 7 in. (170.18 cm); 23:26 BP 139 / 81; Pulse 77; Resp 17; Pulse Ox 99% on R/A; kd3 21:42 Body Mass Index 43.07 (124.74 kg, 170.18 cm) kd3 ED Course: 21:04 Patient arrived in ED. ja2 21:16 [facility] snw 21:16 Joaquin Abel MD is Attending Physician. snw 21:44 Triage completed. kd3 21:44 Arm band placed on right wrist. kd3 21:45 Patient has correct armband on for positive identification. kd3 23:27 No provider procedures requiring assistance completed. Patient did not have IV access kd3 during this emergency room visit. Patient maintains SpO2 saturation greater than 95% on room air. Administered Medications: No medications were administered Medication: 21:45 VIS not applicable for this client. kd3 Outcome: 23:10 Discharge ordered by . snw 23:27 Discharged to home ambulatory. kd3 23:27 Condition: stable 23:27 Discharge instructions given to patient, Instructed on discharge instructions, follow up and referral plans. Demonstrated understanding of instructions, follow-up care, medications, Prescriptions given X 4. 23:27 Patient left the ED. kd3 Signatures: Rosalva Fox FNP-C PEDIATRIC PHYSIATRIST-CsnSusy Lee2 Leyda Kohler, RN RN kd3
--- NOTE | 2022-03-11 23:12 | EDPHYS ---
Physician Documentation [facility] Name: Victorino Alejo Age: 51 yrs Sex: Male : 1970 Arrival Date: 03/11/2022 Time: 21:04 Bed 17 Private MD: ED Physician Joaquin Abel HPI: 03/11 23:15 This 51 yrs old Male presents to ER via Ambulatory with complaints of Covid. snw 23:15 Onset: The symptoms/episode began/occurred suddenly. Associated signs and symptoms: The snw patient has no apparent associated signs or symptoms. Modifying factors: The patient symptoms are alleviated by nothing, the patient symptoms are aggravated by nothing. The patient has not experienced similar symptoms in the past. The patient has not experienced similar symptoms in the past, but family has similar symptoms, Son and grandchild dx with covid. The patient has not recently seen a physician. Historical: - Allergies: 21:44 No Known Allergies; kd3 - Home Meds: 21:44 None [Active]; kd3 - PMHx: 21:44 None; kd3 - Immunization history:: Adult Immunizations up to date. - Social history:: Smoking status: Patient denies any tobacco usage or history of. ROS: 23:12 Constitutional: Negative for fever, chills, and weight loss, Eyes: Negative for injury, snw pain, redness, and discharge, ENT: Negative for injury, pain, and discharge, Neck: Negative for injury, pain, and swelling, Cardiovascular: Negative for chest pain, palpitations, and edema, Respiratory: Negative for shortness of breath, cough, wheezing, and pleuritic chest pain, Abdomen/GI: Negative for abdominal pain, nausea, vomiting, diarrhea, and constipation, Back: Negative for injury and pain, : Negative for injury, bleeding, discharge, and swelling, MS/Extremity: Negative for injury and deformity, Skin: Negative for injury, rash, and discoloration, Neuro: Negative for headache, weakness, numbness, tingling, and seizure, Psych: Negative for depression, anxiety, suicide ideation, homicidal ideation, and hallucinations. Exam: 23:12 Constitutional: This is a well developed, well nourished patient who is awake, alert, snw and in no acute distress. Head/Face: Normocephalic, atraumatic. Eyes: Pupils equal round and reactive to light, extra-ocular motions intact. Lids and lashes normal. Conjunctiva and sclera are non-icteric and not injected. Cornea within normal limits. Periorbital areas with no swelling, redness, or edema. ENT: Nares patent. No nasal discharge, no septal abnormalities noted. Tympanic membranes are normal and external auditory canals are clear. Oropharynx with no redness, swelling, or masses, exudates, or evidence of obstruction, uvula midline. Mucous membranes moist. Neck: Trachea midline, no thyromegaly or masses palpated, and no cervical lymphadenopathy. Supple, full range of motion without nuchal rigidity, or vertebral point tenderness. No Meningismus. Chest/axilla: Normal chest wall appearance and motion. Nontender with no deformity. No lesions are appreciated. Cardiovascular: Regular rate and rhythm with a normal S1 and S2. No gallops, murmurs, or rubs. Normal PMI, no JVD. No pulse deficits. Respiratory: Lungs have equal breath sounds bilaterally, clear to auscultation and percussion. No rales, rhonchi or wheezes noted. No increased work of breathing, no retractions or nasal flaring. Abdomen/GI: Soft, non-tender, with normal bowel sounds. No distension or tympany. No guarding or rebound. No evidence of tenderness throughout. Back: No spinal tenderness. No costovertebral tenderness. Full range of motion. Skin: Warm, dry with normal turgor. Normal color with no rashes, no lesions, and no evidence of cellulitis. MS/ Extremity: Pulses equal, no cyanosis. Neurovascular intact. Full, normal range of motion. Neuro: Awake and alert, GCS 15, oriented to person, place, time, and situation. Cranial nerves II-XII grossly intact. Motor strength 5/5 in all extremities. Sensory grossly intact. Cerebellar exam normal. Normal gait. Psych: Awake, alert, with orientation to person, place and time. Behavior, mood, and affect are within normal limits. Vital Signs: 21:42 BP 146 / 73; Pulse 79; Resp 18; Temp 99.1(O); Pulse Ox 97% on R/A; Weight 124.74 kg; kd3 Height 5 ft. 7 in. (170.18 cm); 23:26 BP 139 / 81; Pulse 77; Resp 17; Pulse Ox 99% on R/A; kd3 21:42 Body Mass Index 43.07 (124.74 kg, 170.18 cm) kd3 MDM: 21:27 Patient medically screened. snw 23:13 Data reviewed: vital signs, nurses notes. Data interpreted: Pulse oximetry: on room air snw is 97 %. Interpretation: normal. Counseling: I had a detailed discussion with the patient and/or guardian regarding: the historical points, exam findings, and any diagnostic results supporting the discharge/admit diagnosis, the presence of at least one elevated blood pressure reading (>120/80) during this emergency department visit, lab results, the need for outpatient follow up, to return to the emergency department if symptoms worsen or persist or if there are any questions or concerns that arise at home. Special discussion: I have referred the patient to see his PCP for further evaluation of high blood pressure. Based on the history and exam findings, there is no indication for further emergent testing or inpatient evaluation. I discussed with the patient/guardian the need to see the primary care provider for further evaluation of the symptoms. 03/11 21:41 Order name: COVID-19 SARS RT PCR (Document "Date of Onset" if Symptomatic); Complete kd3 Time: 23:03/11 21:41 Order name: Flu; Complete Time: 22:29 kd3 03/11 21:41 Order name: Strep; Complete Time: 22:29 kd3 03/11 22:27 Order name: Throat Culture EDMS Administered Medications: No medications were administered Disposition Summary: 03/11/22 23:10 Discharge Ordered Location: Home snw Condition: Stable snw Diagnosis - Acute upper respiratory infection, unspecified snw - SARS-associated coronavirus as the cause of diseases classified elsewhere snw Followup: snw - With: Emergency Department - When: As needed - Reason: Worsening of condition Followup: snw - With: Private Physician - When: 2 - 3 days - Reason: Recheck today's complaints, Continuance of care, Re-evaluation by your physician Discharge Instructions: - Discharge Summary Sheet snw - Upper Respiratory Infection, Adult snw - Rehydration, Adult snw - COVID-19 snw - 10 Things You Can Do to Manage Your COVID-19 Symptoms at Home - [facility] snw - COVID-19: Quarantine vs. Isolation - [facility] snw - Prevent the Spread of COVID-19 if You Are Sick - [facility] snw Forms: - Medication Reconciliation Form snw - Thank You Letter snw - Antibiotic Education snw - Prescription Opioid Use snw Prescriptions: - Zyrtec 10 mg Oral Tablet - take 1 tablet by ORAL route once daily As needed; 20 tablet; Refills: 0, snw Product Selection Permitted - Multivitamin 50 Plus - take 1 tablet by ORAL route once daily; 20 tablet; Refills: 0, Product snw Selection Permitted - famotidine 20 mg Oral tablet - take 1 tablet by ORAL route 2 times per day; 20 tablet; Refills: 0, Product snw Selection Permitted Signatures: Dispatcher [employer] EDMS Rosalva Fox, G[employer] DELIVERY-C G[employer]GER [employer] DELIV[employer]-Cs[facility] Leyda Kohler, RN RN kd3
[2022-03-12 01:05] VITALS: TEMP 99.1
[2022-03-12 01:07] VITALS: BP 139/81; O2SAT 99
== END 2022-03-11 23:27 | disposition home or self-care (01) ==
LOC: ER 21:01
DX: U07.1 COVID-19 (principal); J06.9 Acute upper respiratory infection, unspecified
CPT/HCPCS: 87070; 87081; 87804 ×2; U0003

== ENCOUNTER 2022-04-21 20:27 | Emergency (ER) | payer BC ==
--- NOTE | 2022-04-21 21:50 | EDPHYS ---
Physician Documentation [facility] Name: Victorino Alejo Age: 51 yrs Sex: Male : 1970 Arrival Date: 04/21/2022 Time: 20:29 Bed 14 Private MD: ED Physician Joaquin Abel HPI: 04/21 21:45 This 51 yrs old Male presents to ER via Ambulatory with complaints of High cp Blood Pressure. 21:45 The patient has elevated blood pressure and discovered this at a relative's home. cp Onset: The symptoms/episode began/occurred yesterday. Associated signs and symptoms: The patient has no apparent associated signs or symptoms. Severity of symptoms: At its worst the blood pressure was 183 mm Hg, in the emergency department the blood pressure is improved, 132 mm Hg. Patient denies headache, denies chest pain. Reports he checked blood pressure yesterday with wrist cuff and noticed systolic pressure of 183. He reports rechecking blood pressure again today and recording 160 systolic pressure. Historical: - Allergies: 20:35 Lisinopril; as6 - Home Meds: 20:35 None [Active]; as6 - PMHx: 20:35 None; as6 - PSHx: 20:35 Appendectomy; foot; as6 - Immunization history:: Client reports receiving the Foster \T\ Foster single-dose vaccine. - Social history:: Smoking status: Patient denies any tobacco usage or history of. ROS: 21:47 Eyes: Negative for injury, pain, redness, and discharge. cp 21:47 Constitutional: Negative for body aches, chills, fever, poor PO intake. 21:47 Cardiovascular: Negative for chest pain, edema, palpitations. 21:47 Respiratory: Negative for cough, shortness of breath, wheezing. 21:47 Abdomen/GI: Negative for abdominal pain, nausea, vomiting, and diarrhea. Exam: 21:47 Head/Face: Normocephalic, atraumatic. cp 21:47 Constitutional: The patient appears in no acute distress, alert, awake, comfortable, non-diaphoretic, non-toxic, well developed, well nourished, obese. 21:47 Eyes: Periorbital structures: appear normal, Conjunctiva: normal, no exudate, no cp injection, Sclera: no appreciated abnormality, Lids and lashes: appear normal, bilaterally. 21:47 ENT: External ear(s): are unremarkable, Nose: is normal, Mouth: Lips: moist, Oral mucosa: pink and intact, moist, Posterior pharynx: is normal, airway is patent, no erythema, no exudate. 21:47 Chest/axilla: Inspection: normal, Palpation: is normal, no crepitus, no tenderness. 21:47 Cardiovascular: Rate: normal, Rhythm: regular, Edema: is not appreciated, JVD: is not appreciated. 21:47 Respiratory: the patient does not display signs of respiratory distress, Respirations: normal, no use of accessory muscles, no retractions, labored breathing, is not present, Breath sounds: are clear throughout, no decreased breath sounds, no stridor, no wheezing. 21:47 Abdomen/GI: Inspection: abdomen appears normal, Palpation: abdomen is soft and non-tender, in all quadrants. 21:47 Back: pain, is absent, ROM is normal. 21:47 Neuro: Orientation: to person, place \T\ time. Mentation: is normal, Cerebellar function: is grossly normal, Motor: moves all fours, strength is normal, Sensation: is normal. Vital Signs: 20:31 BP 146 / 82; Pulse 71; Resp 18 S; Temp 98.4(O); Pulse Ox 97% on R/A; Weight 124.74 kg as6 (R); Height 5 ft. 7 in. (170.18 cm) (R); Pain 5/10; 21:30 BP 132 / 72; Pulse 66; Resp 16 S; Pulse Ox 99% on R/A; aa9 21:45 BP 139 / 85; Pulse 69; Resp 18 S; Pulse Ox 99% on R/A; aa9 20:31 Body Mass Index 43.07 (124.74 kg, 170.18 cm) as6 MDM: 21:31 Patient medically screened. brae 21:45 Differential diagnosis: hypertensive crisis, Malignant HTN, CVA, intracerebral cp hemorrhage. 21:50 Data reviewed: vital signs, nurses notes. cp 04/22 20:59 Counseling: I had a detailed discussion with the patient and/or guardian regarding: the cp historical points, exam findings, and any diagnostic results supporting the discharge/admit diagnosis, the presence of at least one elevated blood pressure reading (>120/80) during this emergency department visit, the need for outpatient follow up, for definitive care, a family practitioner. 04/21 21:53 Order name: Urine --Ancillary (enter results) 2 04/21 21:54 Order name: Urine Test (obtain specimen); Complete Time: 21:54 mw2 04/21 21:54 Order name: Urine Dipstick-Ancillary (obtain specimen); Complete Time: 21:54 mw2 Administered Medications: No medications were administered Disposition Summary: 04/21/22 21:50 Discharge Ordered Location: Home cp Problem: new cp Symptoms: have improved cp Condition: Stable cp Diagnosis - Elevated blood-pressure reading, without diagnosis of hypertension cp Followup: cp - With: Private Physician - When: 2 - 3 days - Reason: Recheck today's complaints Discharge Instructions: - Discharge Summary Sheet cp - How to Take Your Blood Pressure, [id number] cp - DASH Eating Plan cp - Form - Blood Pressure Record Sheet cp Forms: - Medication Reconciliation Form cp - Thank You Letter cp - Antibiotic Education cp - Prescription Opioid Use cp Signatures: Dispatcher [employer] Joaquin Zuñiga MD MD cha Page, Corey, GILSON PA cp Wyatt Vick mw2 Emroy Hill, RN RN as6
--- NOTE | 2022-04-21 21:50 | ER ---
Nurse's Notes [facility] Name: Victorino Alejo Age: 51 yrs Sex: Male : 1970 Arrival Date: 04/21/2022 Time: 20:29 Bed 14 Private MD: Diagnosis: Elevated blood-pressure reading, without diagnosis of hypertension Presentation: 04/21 20:31 Chief complaint: Patient states: "I checked my blood pressure at home it was like as6 160/110. I just want to make sure I'm okay". Coronavirus screen: At this time, the client does not indicate any symptoms associated with coronavirus-19. Ebola Screen: No symptoms or risks identified at this time. Initial Sepsis Screen: Does the patient meet any 2 criteria? No. Patient's initial sepsis screen is negative. Does the patient have a suspected source of infection? No. Patient's initial sepsis screen is negative. Risk Assessment: Do you want to hurt yourself or someone else? Patient reports no desire to harm self or others. Onset of symptoms was April 21, 2022. 20:31 Method Of Arrival: Ambulatory as6 20:31 Acuity: JIMMY 4 as6 Triage Assessment: 20:35 General: Appears in no apparent distress. Behavior is calm, cooperative. Pain: as6 Complains of pain in head Quality of pain is described as aching. Historical: - Allergies: 20:35 Lisinopril; as6 - Home Meds: 20:35 None [Active]; as6 - PMHx: 20:35 None; as6 - PSHx: 20:35 Appendectomy; foot; as6 - Immunization history:: Client reports receiving the Foster \\T\\ Foster single-dose vaccine. - Social history:: Smoking status: Patient denies any tobacco usage or history of. Screenin:55 Abuse screen: Denies threats or abuse. Denies injuries from another. Nutritional aa9 screening: No deficits noted. Tuberculosis screening: No symptoms or risk factors identified. Fall Risk None identified. Assessment: 21:40 General: Appears comfortable, obese, Behavior is calm, cooperative, appropriate for aa9 age. Pain: Denies pain. Neuro: Level of Consciousness is awake, alert, obeys commands, Oriented to person, place, time, situation. Cardiovascular: Reports High blood pressure and headaches. Respiratory: Airway is patent Respiratory effort is even, unlabored. Vital Signs: 20:31 BP 146 / 82; Pulse 71; Resp 18 S; Temp 98.4(O); Pulse Ox 97% on R/A; Weight 124.74 kg as6 (R); Height 5 ft. 7 in. (170.18 cm) (R); Pain 5/10; 21:30 BP 132 / 72; Pulse 66; Resp 16 S; Pulse Ox 99% on R/A; aa9 21:45 BP 139 / 85; Pulse 69; Resp 18 S; Pulse Ox 99% on R/A; aa9 20:31 Body Mass Index 43.07 (124.74 kg, 170.18 cm) as6 ED Course: 20:29 Patient arrived in ED. ja2 20:35 Triage completed. as6 20:36 Arm band placed on. as6 21:29 Joaquin Rahman PA is PHCP. cp 21:29 Joaquin Abel MD is Attending Physician. cp 21:40 Rosalinda Rivera, RN is Primary Nurse. aa9 21:55 Patient has correct armband on for positive identification. Bed in low position. Call aa9 light in reach. 21:59 No provider procedures requiring assistance completed. Patient did not have IV access aa9 during this emergency room visit. Administered Medications: No medications were administered Medication: 22:00 VIS not applicable for this client. aa9 Outcome: 21:50 Discharge ordered by . cp 22:00 Discharged to home ambulatory. aa9 22:00 Condition: stable 22:00 Discharge instructions given to patient, Instructed on discharge instructions, follow up and referral plans. Demonstrated understanding of instructions, follow-up care. 22:00 Patient left the ED. aa9 Signatures: Joaquin Rahman PA PA cp Alexander, Jessica ja2 Emory Hill RN RN as6 Rosalinda Rivera, LO RN aa9 Corrections: (The following items were deleted from the chart) 21:54 21:41 BP 132 / 72; Pulse 66bpm; Resp 16bpm; Spontaneous; Pulse Ox 99% RA; aa9 aa9
[2022-04-21 22:33] VITALS: TEMP 98.4
[2022-04-21 22:34] VITALS: O2SAT 99
[2022-04-21 22:35] VITALS: BP 139/85
[2022-04-22 02:14] LABS: Urine Specific Gravity/Preg 1.025 (1.005-1.030)
== END 2022-04-21 22:00 | disposition home or self-care (01) ==
LOC: ER 20:27
DX: R03.0 Elevated blood-pressure reading, without diagnosis of hypertension (principal)
CPT/HCPCS: 81025; 99281

== ENCOUNTER 2022-09-30 20:38 | Emergency (ER) | payer SELFPAY ==
[2022-09-30] MEDS ORDERED: METOCLOPRAMIDE 5 MG TAB ONE (21:34)
[2022-09-30] MEDS ORDERED: BENZONATATE 100 MG CAP PO ONE (21:34)
[2022-09-30] MEDS ORDERED: DIPHENHYDRAMINE 25 MG TAB/CAP ONE (21:34)
[2022-09-30] MEDS ORDERED: IBUPROFEN 400 MG TAB ONE (21:35)
[2022-09-30 21:47] LABS: SARS-COV-2 RT PCR NEGATIVE (NEGATIVE)
--- NOTE | 2022-09-30 21:55 | RAD REPORT ---
EXAM DESCRIPTION: Con Acevedo (2 Views)09/30/2022 9:47 pm CLINICAL HISTORY: Cough COMPARISON: 2009 FINDINGS: The lungs appear clear of acute infiltrate. The heart is normal size IMPRESSION: No acute abnormalities displayed
--- NOTE | 2022-09-30 22:46 | ER ---
Nurse's Notes [facility] Name: Victorino Alejo Age: 52 yrs Sex: Male : 1970 Arrival Date: 09/30/2022 Time: 20:41 Bed 13 Private MD: Diagnosis: Acute bronchitis, unspecified;Acute tonsillitis, unspecified;Headache;Acute febrile illness Presentation: 09/30 20:49 Chief complaint: Patient states: "I just want to make sure I don't have covid" pt as6 states he has had a fever, headache and congestion since Thursday. Coronavirus screen: Client presents with at least one sign or symptom that may indicate coronavirus-19. Ebola Screen: No symptoms or risks identified at this time. Initial Sepsis Screen: Does the patient meet any 2 criteria? No. Patient's initial sepsis screen is negative. Does the patient have a suspected source of infection? No. Patient's initial sepsis screen is negative. Risk Assessment: Do you want to hurt yourself or someone else? Patient reports no desire to harm self or others. Onset of symptoms was September 28, 2022. 20:49 Method Of Arrival: Ambulatory as6 20:49 Acuity: JIMMY 4 as6 Triage Assessment: 20:51 General: Appears in no apparent distress. Behavior is calm, cooperative. Pain: as6 Complains of pain in head. EENT: Reports nasal congestion. Neuro: Reports headache. Respiratory: Reports cough that is. Historical: - Allergies: 20:50 Lisinopril; as6 - Home Meds: 20:50 None [Active]; as6 - PMHx: 20:50 None; as6 - PSHx: 20:50 Appendectomy; foot; as6 - Immunization history:: Client reports receiving the 2nd dose of the Covid vaccine, moderna. - Social history:: Smoking status: Patient denies any tobacco usage or history of. - Family history:: not pertinent. Assessment: 21:00 General: Appears in no apparent distress. comfortable, Behavior is calm, cooperative, jb4 appropriate for age. Pain: Complains of pain in head Pain does not radiate. Pain currently is 6 out of 10 on a pain scale. Neuro: Level of Consciousness is awake, alert, obeys commands, Oriented to person, place, time, situation. Cardiovascular: Respiratory: Airway is patent Respiratory effort is even, unlabored, Respiratory pattern is regular, symmetrical. GI: No signs and/or symptoms were reported involving the gastrointestinal system. : No signs and/or symptoms were reported regarding the genitourinary system. EENT: No signs and/or symptoms were reported regarding the EENT system. Derm: Skin is intact, Skin is pink, warm \\T\\ dry. Musculoskeletal: Circulation, motion, and sensation intact. Range of motion: intact in all extremities. 22:12 Reassessment: Patient appears in no apparent distress at this time. Patient and/or jb4 family updated on plan of care and expected duration. Pain level reassessed. Patient is alert, oriented x 3, equal unlabored respirations, skin warm/dry/pink. Vital Signs: 20:49 BP 142 / 83; Pulse 80; Resp 18 S; Temp 97.8(O); Pulse Ox 98% on R/A; Weight 127.01 kg as6 (R); Height 5 ft. 7 in. (R); Pain 6/10; 20:49 Body Mass Index 43.85 (127.01 kg, 170.18 cm) as6 20:49 Pain Scale: Adult as6 Pantera Coma Score: 22:42 Eye Response: spontaneous(4). Motor Response: obeys commands(6). Verbal Response: sp4 oriented(5). Total: 15. ED Course: 20:41 Patient arrived in ED. jj6 20:43 Evangelista Kelly MD is Attending Physician. sp4 20:49 Arm band placed on. as6 20:50 Triage completed. as6 20:59 COVID-19/FLU A+B Sent. as6 21:45 Roberto Ac, RN is Primary Nurse. jb4 21:47 Chest Pa And Lat (2 Views) XRAY In Process Unspecified. EDMS 22:05 Strep Sent. jb4 22:45 Vitor Santillan MD is Referral Physician. sp4 Administered Medications: 21:45 Drug: MetoCLOPramide PO 10 mg Route: PO; jb4 21:45 Drug: Ibuprofen PO 800 mg Route: PO; jb4 21:46 Drug: diphenhydrAMINE PO 25 mg Route: PO; jb4 21:46 Drug: Tessalon Perle PO 200 mg Route: PO; jb4 Outcome: 22:46 Discharge ordered by . sp4 Signatures: Dispatcher [employer] Roberto De La O RN RN jb4 Marisel Caballeroj6 Emory Hill RN RN as6 Evangelista Kelly MD MD sp4
--- NOTE | 2022-09-30 22:47 | EDPHYS ---
Physician Documentation [facility] Name: Victorino Alejo Age: 52 yrs Sex: Male : 1970 Arrival Date: 09/30/2022 Time: 20:41 Bed 13 Private MD: ED Physician Evangelista Kelly HPI: 09/30 20:43 This 52 yrs old Male presents to ER via Unassigned with complaints of sp4 Headache, Fever, Congestion. 21:08 52-year-old male without history of past medical problems presents with acute onset of sp4 cough, headache, fever, congestion, and productive cough of yellow sputum starting 3 days ago. Patient states his fever has subsided but he has some trouble with significant congestion in his throat and also productive cough. Patient denied vomiting or shaking chills. Historical: - Allergies: 20:50 Lisinopril; as6 - Home Meds: 20:50 None [Active]; as6 - PMHx: 20:50 None; as6 - PSHx: 20:50 Appendectomy; foot; as6 - Immunization history:: Client reports receiving the 2nd dose of the Covid vaccine, moderna. - Social history:: Smoking status: Patient denies any tobacco usage or history of. - Family history:: not pertinent. ROS: 21:08 Constitutional: Negative for chills, and weight loss, positive for fever, low energy, sp4 cough congestion Eyes: Negative for injury, pain, redness, and discharge, ENT: Negative for injury, pain, and discharge, positive for congestion including nasal congestion and upper airway congestion and throat irritation Neck: Negative for injury, pain, and swelling, Cardiovascular: Negative for chest pain, palpitations, and edema, Respiratory: Negative for shortness of breath, wheezing, and pleuritic chest pain, positive for productive cough, yellow sputum, and congestion Abdomen/GI: Negative for abdominal pain, nausea, vomiting, diarrhea, and constipation, Back: Negative for injury and pain, : Negative for injury, bleeding, discharge, and swelling, MS/Extremity: Negative for injury and deformity, Skin: Negative for injury, rash, and discoloration, Neuro: Negative for headache, weakness, numbness, tingling, and seizure, Psych: Negative for depression, anxiety, suicide ideation, homicidal ideation, and hallucinations, Allergy/Immunology: Negative for hives, rash, and allergies, Endocrine: Negative for neck swelling, polydipsia, polyuria, polyphagia, and marked weight changes, Hematologic/Lymphatic: Negative for swollen nodes, abnormal bleeding, and unusual bruising. Exam: 21:08 Constitutional: This is a well developed, well nourished patient who is awake, alert, sp4 and in no acute distress. 21:08 Head/Face: Normocephalic, atraumatic. Eyes: Pupils equal round and reactive to light, extra-ocular motions intact. Lids and lashes normal. Conjunctiva and sclera are non-icteric and not injected. Cornea within normal limits. Periorbital areas with no swelling, redness, or edema. ENT: Nares patent. No nasal discharge, no septal abnormalities noted. Tympanic membranes are normal and external auditory canals are clear. Oropharynx with no masses, exudates, or evidence of obstruction, uvula midline. Mucous membranes moist. Positive bilateral tonsillar irritation, redness, enlargement, and pharyngeal redness Neck: Trachea midline, no thyromegaly or masses palpated, and no cervical lymphadenopathy. Supple, full range of motion without nuchal rigidity, or vertebral point tenderness. No Meningismus. Chest/axilla: Normal chest wall appearance and motion. Nontender with no deformity. No lesions are appreciated. Cardiovascular: Regular rate and rhythm with a normal S1 and S2. No gallops, murmurs, or rubs. Normal PMI, no JVD. No pulse deficits. Respiratory: Lungs have equal breath sounds bilaterally, clear to auscultation and percussion. No rales, rhonchi or wheezes noted. No increased work of breathing, no retractions or nasal flaring. Abdomen/GI: Soft, non-tender, with normal bowel sounds. No distension or tympany. No guarding or rebound. No evidence of tenderness throughout. Back: No spinal tenderness. No costovertebral tenderness. Full range of motion. Skin: Warm, dry with normal turgor. Normal color with no rashes, no lesions, and no evidence of cellulitis. MS/ Extremity: Pulses equal, no cyanosis. Neurovascular intact. Full, normal range of motion. Neuro: Awake and alert, GCS 15, oriented to person, place, time, and situation. Cranial nerves II-XII grossly intact. Motor strength 5/5 in all extremities. Sensory grossly intact. Cerebellar exam normal. Normal gait. Psych: Awake, alert, with orientation to person, place and time. Behavior, mood, and affect are within normal limits. Vital Signs: 20:49 BP 142 / 83; Pulse 80; Resp 18 S; Temp 97.8(O); Pulse Ox 98% on R/A; Weight 127.01 kg as6 (R); Height 5 ft. 7 in. (R); Pain 6/10; 20:49 Body Mass Index 43.85 (127.01 kg, 170.18 cm) as6 20:49 Pain Scale: Adult as6 [place] Coma Score: 22:42 Eye Response: spontaneous(4). Motor Response: obeys commands(6). Verbal Response: sp4 oriented(5). Total: 15. MDM: 21:06 Patient medically screened. sp4 22:42 Differential diagnosis: cluster headache, herpes zoster, migraine, tension headache, sp4 Acute viral syndrome, acute tonsillitis, acute bronchitis, influenza, COVID-19, bacterial bronchitis. Data reviewed: vital signs, nurses notes, lab test result(s), finger stick glucose, Viral swabs negative, radiologic studies, plain films. ED course: Patient's work-up is unremarkable, will provide Zithromax p.o. for the next 5 days for tonsillitis work release for 2 days, and as needed medications for headache and cough. 09/30 21:07 Order name: Accucheck Blood Glucose; Complete Time: 22:05 4 09/30 21:07 Order name: Strep [facility] 09/30 20:43 Order name: COVID-19/FLU A+B; Complete Time: 22:37 4 09/30 21:07 Order name: Chest Pa And Lat (2 Views) XRAY; Complete Time: 22:37 4 09/30 22:04 Order name: Glucose, Ancillary Testing; Complete Time: 22:37 EDMS Administered Medications: 21:45 Drug: MetoCLOPramide PO 10 mg Route: PO; jb4 21:45 Drug: Ibuprofen PO 800 mg Route: PO; jb4 21:46 Drug: diphenhydrAMINE PO 25 mg Route: PO; jb4 21:46 Drug: Tessalon Perle PO 200 mg Route: PO; jb4 Disposition Summary: 09/30/22 22:46 Discharge Ordered Location: Home sp4 Problem: new sp4 Symptoms: have improved sp4 Condition: Stable sp4 Diagnosis - Acute bronchitis, unspecified sp4 - Acute tonsillitis, unspecified sp4 - Headache sp4 - Acute febrile illness sp4 Followup: sp4 - With: Vitor Santillan MD - When: 10 - 14 days - Reason: Forms: - Medication Reconciliation Form sp4 - Thank You Letter sp4 - Antibiotic Education sp4 - Prescription Opioid Use sp4 Signatures: Dispatcher [employer] EDRoberto Medina, RN RN jb4 Emory Hill RN RN as6 Evangelista Kelly MD MD sp4
[2022-09-30] MEDS ORDERED: AZITHROMYCIN 250 MG TAB ONE (23:08)
[2022-10-01 04:11] VITALS: TEMP 97.8; O2SAT 98
[2022-10-01 04:12] VITALS: BP 116/58
== END 2022-09-30 23:10 | disposition home or self-care (01) ==
LOC: ER 20:38
DX: J20.9 Acute bronchitis, unspecified (principal); J03.90 Acute tonsillitis, unspecified; R51.9 Headache, unspecified; R50.9 Fever, unspecified; Z20.822 Contact with and (suspected) exposure to COVID-19
CPT/HCPCS: 0240U; 71046; 82947; 87070; 87081; 99284

== ENCOUNTER → 2023-07-28 | Emergency (ER) | payer BC, SELFPAY ==
[~2023-07-28] MED LIST: NA CHLORIDE 0.9% 1,000 ML ONE
[2023-07-28 19:08] LABS: Absolute Lymphocytes (CBC) 2.8 K/uL (0.7-4.9); Hematocrit 42.3 % (39.6-49.0); Lymphocytes % 35.9 % (15.3-44.8); MCV 90.7 fL (80-100); MPV 8.6 fL (7.6-11.3); Platelets 208 thou/uL (152-406); RBC Red Blood Cell Count 4.66 M/uL (4.33-5.43)
[2023-07-28 19:25] LABS: Albumin 3.7 g/dL (3.4-5.0); Bilirubin Total 0.3 mg/dL (0.2-1.0); Potassium 3.7 mEq/L (3.5-5.1); Protein, Total 7.6 g/dL (6.4-8.2)
--- NOTE | 2023-07-28 20:49 | RAD REPORT ---
EXAM DESCRIPTION: CTAbdomen Pelvis W Contrast - 07/28/2023 8:32 pm CLINICAL HISTORY: ABD PAIN COMPARISON: Abdomen Pelvis W Contrast dated 07/23/2021; Abdomen Pelvis W Contrast dated 08/30/2019 TECHNIQUE: CT of the abdomen and pelvis was performed. All CT scans are performed using dose optimization technique as appropriate and may include automated exposure control or mA/KV adjustment according to patient size. FINDINGS: Lower chest: No acute abnormality. Liver: No acute abnormality or suspicious lesions. Steatosis for Biliary: No biliary ductal dilatation. Stomach: No significant focal abnormality. Duodenum: No significant focal abnormality. Pancreas: No significant abnormality. Spleen: No significant abnormality. Adrenal: No suspicious lesions. Kidney/ureter: No hydronephrosis. No renal calculi. Retroperitoneum: No retroperitoneal adenopathy. Vascular: No aneurysm. Bowel: No significant focal abnormality. Peritoneum: Fat containing umbilical hernia Bladder: Grossly unremarkable. Reproductive: Mild prostatomegaly. Bones: No acute fracture. No bone island in the left ischium. Other: n/a IMPRESSION: No acute intra-abdominal or pelvic finding.
--- NOTE | 2023-07-28 20:56 | EDPHYS ---
Physician Documentation [facility] Name: Victorino Alejo Age: 53 yrs Sex: Male : 1970 Arrival Date: 07/28/2023 Time: 18:30 Bed 5 Private MD: ED Physician Cinthya Card HPI: 07/28 20:54 This 53 yrs old Male presents to ER via Ambulatory with complaints of Side kb Pain, Back Pain, Diarrhea. 20:54 Pt is a 53 year old male who presents with abd pain and diarrhea that started kb yesterday. States symptoms have mostly resolved, but still has slight pain to left lateral abd. Denies fever, urinary symptom, n/v. Historical: - Allergies: 18:41 Lisinopril; iw - Home Meds: 18:41 None [Active]; iw - PMHx: 18:41 None; iw - PSHx: 18:41 Appendectomy; foot; iw - Immunization history:: Adult Immunizations unknown. - Social history:: Smoking status: Patient denies any tobacco usage or history of. ROS: 20:54 Constitutional: Negative for fever, chills, and weight loss, kb 20:54 Abdomen/GI: Positive for abdominal pain, diarrhea, Negative for nausea and vomiting, 20:54 All other systems are negative, Exam: 20:54 Constitutional: This is a well developed, well nourished patient who is awake, alert, kb and in no acute distress. Head/Face: Normocephalic, atraumatic. ENT: Moist Mucous membranes Cardiovascular: Regular rate Respiratory: Respirations even and unlabored. No increased work of breathing. Talking in full sentences Abdomen/GI: Soft, non-tender. No distention Skin: Warm, dry with normal turgor. Normal color. MS/ Extremity: Pulses equal, no cyanosis. Neurovascular intact. Full, normal range of motion. Neuro: Awake and alert, GCS 15, oriented to person, place, time, and situation. Moves all extremities. Normal gait. Vital Signs: 18:41 BP 154 / 84; Pulse 76; Resp 16; Temp 97.8; Pulse Ox 100% on R/A; Weight 131.54 kg; iw Height 5 ft. 7 in. ; Pain 7/10; 19:04 BP 159 / 84; Pulse 67; Resp 18; Pulse Ox 97% on R/A; tl4 19:30 BP 136 / 77; Pulse 64; Resp 18; Pulse Ox 96% ; tl4 20:30 BP 137 / 82; Pulse 63; Resp 18; Pulse Ox 100% ; jj7 18:41 Body Mass Index 45.42 (131.54 kg, 170.18 cm) iw 18:41 Pain Scale: Adult iw [place] Coma Score: 19:04 Eye Response: spontaneous(4). Motor Response: obeys commands(6). Verbal Response: tl4 oriented(5). Total: 15. MDM: 18:38 Patient medically screened. kb 20:54 Differential diagnosis: diverticulitis, non-specific abd pain, Ureterolithiasis, kb colitis. Data reviewed: vital signs, nurses notes. Counseling: I had a detailed discussion with the patient and/or guardian regarding the historical points, exam findings, and any diagnostic results supporting the discharge/admit diagnosis, lab results, radiology results, the need for outpatient follow up, a family practitioner, to return to the emergency department if symptoms worsen or persist or if there are any questions or concerns that arise at home. 07/28 18:50 Order name: CBC with Diff; Complete Time: 19:15 kb 07/28 18:50 Order name: CMP; Complete Time: 19:28 kb 07/28 18:50 Order name: Lipase; Complete Time: 19:28 kb 07/28 18:50 Order name: CT Abd/Pelvis - IV Contrast Only; Complete Time: 20:52 kb 07/28 18:50 Order name: IV Saline Lock; Complete Time: 19:02 kb 07/28 18:50 Order name: Labs collected and sent; Complete Time: 19:02 kb Administered Medications: 20:03 Drug: NS 0.9% IV 1000 ml IV at 1000 ml once Route: IV; Rate: 1000 ml; Site: right jj7 antecubital; 21:09 Follow up: IV Status: Completed infusion jj7 Disposition Summary: 07/28/23 20:56 Discharge Ordered Notes: Location: Home kb Condition: Stable kb Diagnosis - Abdominal pain, Generalized kb - Diarrhea, unspecified kb Followup: kb - With: Emergency Department - When: As needed - Reason: Worsening of condition Followup: kb - With: Private Physician - When: 2 - 3 days - Reason: Recheck today's complaints, Continuance of care, Re-evaluation by your physician Discharge Instructions: - Discharge Summary Sheet kb - Abdominal Pain, Adult, [id number] kb - Diarrhea, Adult, [id number] kb Forms: - Work release form kb - Medication Reconciliation Form kb - Thank You Letter kb - Antibiotic Education kb - Prescription Opioid Use kb - Patient Portal Instructions kb - Leadership Thank You Letter kb Addendum: 07/30/2023 07:03 Co-signature as Attending Physician, Cinthya Card MD I agree with the assessment and g b1 plan of care. I reviewed the patient's care provided by the Advanced Practice Provider and agree with the diagnosis and treatment plan. Signatures: Dispatcher [employer] Emily Nieves FNP-C FNP-Vashti Arenas, RN RN Simona Morataya RN RN jj7 Cinthya Card MD MD gb1 Rodrigo Curry tl4
--- NOTE | 2023-07-28 20:56 | ER ---
Nurse's Notes [facility] Name: Victorino Alejo Age: 53 yrs Sex: Male : 1970 Arrival Date: 07/28/2023 Time: 18:30 Bed 5 Private MD: Diagnosis: Abdominal pain, Generalized;Diarrhea, unspecified Presentation: 07/28 18:39 Chief complaint: Chief complaint: Patient states: diarrhea yesterday and my stomach was iw hard to touch and my back is hurting, also has left side pain. Coronavirus screen: Client presents with at least one sign or symptom that may indicate coronavirus-19. 18:39 Method Of Arrival: Ambulatory iw 18:39 Acuity: JIMMY 3 iw 19:07 Ebola Screen: Patient negative for fever greater than or equal to 101.5 degrees tl4 Fahrenheit, and additional compatible Ebola Virus Disease symptoms Patient denies exposure to infectious person. Patient denies travel to an Ebola-affected area in the 21 days before illness onset. No symptoms or risks identified at this time. Initial Sepsis Screen: Does the patient meet any 2 criteria? No. Patient's initial sepsis screen is negative. Does the patient have a suspected source of infection? No. Patient's initial sepsis screen is negative. Risk Assessment: Do you want to hurt yourself or someone else? Patient reports no desire to harm self or others. Onset of symptoms was July 27, 2023. Triage Assessment: 19:07 General: Appears in no apparent distress. Behavior is calm, cooperative. tl4 Historical: - Allergies: 18:41 Lisinopril; iw - Home Meds: 18:41 None [Active]; iw - PMHx: 18:41 None; iw - PSHx: 18:41 Appendectomy; foot; iw - Immunization history:: Adult Immunizations unknown. - Social history:: Smoking status: Patient denies any tobacco usage or history of. Screenin:05 [facility] ED Fall Risk Assessment (Adult) History of falling in the last 3 months, tl4 including since admission No falls in past 3 months (0 pts) Confusion or Disorientation No (0 pts) Intoxicated or Sedated No (0 pts) Impaired Gait No (0 pts) Mobility Assist Device Used No (0 pt) Altered Elimination No (0 pt) Score/Fall Risk Level 0 - 2 = Low Risk Oriented to surroundings, Maintained a safe environment, Educated pt \T\ family on fall prevention, incl call for assistance when getting out of bed, Assessed \T\ reinforced patient's understanding of fall precautions. Abuse screen: Denies threats or abuse. Denies injuries from another. Nutritional screening: No deficits noted. Tuberculosis screening: No symptoms or risk factors identified. Assessment: 19:03 General: Appears in no apparent distress. Behavior is calm, cooperative. Pain: tl4 Complains of pain in abdomen. Neuro: Level of Consciousness is awake, alert, obeys commands, Oriented to person, place, time, situation. Cardiovascular: No deficits noted. Respiratory: No deficits noted. GI: Reports upper abdominal pain, diarrhea. : No deficits noted. No signs and/or symptoms were reported regarding the genitourinary system. EENT: No deficits noted. No signs and/or symptoms were reported regarding the EENT system. 19:04 Musculoskeletal: Reports pain in lower back. tl4 Vital Signs: 18:41 BP 154 / 84; Pulse 76; Resp 16; Temp 97.8; Pulse Ox 100% on R/A; Weight 131.54 kg; iw Height 5 ft. 7 in. ; Pain 7/10; 19:04 BP 159 / 84; Pulse 67; Resp 18; Pulse Ox 97% on R/A; tl4 19:30 BP 136 / 77; Pulse 64; Resp 18; Pulse Ox 96% ; tl4 20:30 BP 137 / 82; Pulse 63; Resp 18; Pulse Ox 100% ; jj7 18:41 Body Mass Index 45.42 (131.54 kg, 170.18 cm) iw 18:41 Pain Scale: Adult iw [place] Coma Score: 19:04 Eye Response: spontaneous(4). Motor Response: obeys commands(6). Verbal Response: tl4 oriented(5). Total: 15. ED Course: 18:36 Patient arrived in ED. mg5 18:37 Emily Girard [facility]-C [facility] kb 18:37 Cinthya Card MD is Attending Physician. kb 18:40 Triage completed. iw 18:42 Arm band placed on. iw 19:02 CBC with Diff Sent. tl4 19:02 CMP Sent. tl4 19:02 Lipase Sent. tl4 19:02 Inserted saline lock: 20 gauge in right antecubital area, using aseptic technique. tl4 Blood collected. 19:06 Patient has correct armband on for positive identification. Placed in gown. Bed in low tl4 position. Call light in reach. Side rails up X2. Provided Education on: ED process. Door closed. Lights dimmed. Warm blanket given. 19:07 No provider procedures requiring assistance completed. tl4 20:34 CT Abd/Pelvis - IV Contrast Only In Process Unspecified. EDMS 21:08 IV discontinued, intact, bleeding controlled, No redness/swelling at site. Pressure jj7 dressing applied. Administered Medications: 20:03 Drug: NS 0.9% IV 1000 ml IV at 1000 ml once Route: IV; Rate: 1000 ml; Site: right j antecubital; 21:09 Follow up: IV Status: Completed infusion jj7 Medication: 19:05 VIS not applicable for this client. tl4 Outcome: 20:56 Discharge ordered by . andrea 21:08 Discharged to home ambulatory, jjMihai 21:08 Condition: good 21:08 Discharge instructions given to patient, Instructed on discharge instructions, follow up and referral plans. Demonstrated understanding of instructions, follow-up care, 21:09 Patient left the ED. jj7 Signatures: Dispatcher [employer] EDIN Emily Girard, BOILER WATER TESTER-C BOILER WATER TESTER-Vashti Arenas, RN Simona Serna RN RN jj7 [place], [place] mg5 [place], Rodrigo tl4
[2023-07-29 01:12] VITALS: TEMP 97.8; O2SAT 100
[2023-07-29 01:24] VITALS: BP 137/82
== END ==
LOC: ER 18:30
DX: R10.84 Generalized abdominal pain (principal); R19.7 Diarrhea, unspecified; Z88.8 Allergy status to other drugs, medicaments and biological substances
CPT/HCPCS: 85025; 36415; 83690; 80053; 74177; 96360; 99284; Q9967; J7030

== ENCOUNTER 2024-03-10 18:59 | Emergency (ER) | payer BC ==
[2024-03-10] MEDS ORDERED: METOCLOPRAMIDE 10 MG/2mL INJ ONE (19:36)
[2024-03-10] MEDS ORDERED: DIPHENHYDRAMINE 50 MG/ML VIAL ONE (19:36)
[2024-03-10] MEDS ORDERED: KETOROLAC 30 MG/ML INJ ONE (19:36)
[2024-03-10] MEDS ORDERED: NA CHLORIDE 0.9% 1,000 ML ONE (19:37)
[2024-03-10 20:06] LABS: Absolute Eosinophils 0.1 K/uL (0-0.5); Absolute Lymphocytes (CBC) 2.7 K/uL (0.7-4.9); Absolute Monocytes 0.5 K/uL (0.1-1.3); Absolute Neutrophil 6.1 K/uL (1.8-8.0); Basophils % 0.5 % (0-1.3); Eosinophils % 0.8 % (0-4.4); Hematocrit 41.9 % (39.6-49.0); Lymphocytes % 28.5 % (15.3-44.8); MCH 31.1 pg (27.0-35.0); MCHC 33.5 g/dL (32.0-36.0); MPV 8.7 fL (7.6-11.3); Neutrophils % 65.2 % (41.7-73.7); Platelets 190 thou/uL (152-406); Red Cell Distribution Width 13.5 % (12.1-15.2)
[2024-03-10 20:25] LABS: Anion Gap 12.5 mEq/L (5.0-15.0); Potassium 3.5 mEq/L (3.5-5.1); Troponin High Sensitivity 7.6 pg/mL (<58.9)
--- NOTE | 2024-03-10 21:50 | RAD REPORT ---
EXAM DESCRIPTION: CT - Head Brain Wo Cont - 03/10/2024 9:38 pm CLINICAL HISTORY: headache acute COMPARISON: HEAD BRAIN W O CONTRAST dated 11/23/2009 TECHNIQUE: Noncontrast head CT images were obtained without IV contrast. Multiplanar reformats were generated and reviewed. All CT scans are performed using dose optimization technique as appropriate and may include automated exposure control or mA/KV adjustment according to patient size. FINDINGS: No intracranial hemorrhage, mass, or edema. Midline structures are unremarkable. Normal ventricular caliber for age. Mcdonald-white matter differentiation is preserved, without evidence of acute infarct. No abnormal extra- axial fluid collections. Mastoid air cells and visualized portions of the paranasal sinuses are clear. No acute bony findings. IMPRESSION: No evidence of an acute intracranial process.
[2024-03-10] MEDS ORDERED: LOSARTAN POTASSIUM 50 MG TABLET ONE (22:21)
--- NOTE | 2024-03-10 22:28 | EDPHYS ---
Physician Documentation [facility] Name: Victorino Alejo Age: 53 yrs Sex: Male : 1970 Arrival Date: 03/10/2024 Time: 18:59 Bed 20 Private MD: ED Physician Evangelista Kelly HPI: 03/10 19:32 This 53 yrs old Male presents to ER via Ambulatory with complaints of ec2 Headache, High Blood Pressure. 19:32 Patient arrives today for evaluation of headache and high blood pressure. Patient ec2 reports no diagnosis of hypertension. Patient reports he has been having some headaches ongoing for several days. No nausea or vomiting, no head injuries. States that the head pain has been intermittent for the past several days. No specific alleviating or exacerbating factors. States that he did recently stop caffeine.. Historical: - Allergies: 19: Lisinopril; [facility] - PSHx: 19:22 Appendectomy; foot; [facility] - Immunization history:: Adult Immunizations up to date. - Infectious Disease History:: Denies. - Social history:: Smoking status: unknown. ROS: 19:32 Constitutional: as per hpi ec2 Exam: 19:32 Constitutional: GEN: NAD Head: atraumatic Eyes: EOMI Ears: External ears are ec2 normal. CV: regular rate LUNGS: no respiratory distress ABD: non-distended SKIN: no evidence of rashes MSK: no evidence of trauma. Neuro: Cranial nerves II through XII intact, strength intact all 4 extremities. Vital Signs: 19:19 BP 169 / 92; Pulse 74; Resp 18; Temp 98.2; Pulse Ox 96% ; Weight 130.63 kg; Height 5 jm12 ft. 7 in. ; Pain 9/10; 21:11 BP 176 / 84; Pulse 66; Resp 14; Pulse Ox 96% ; Pain 4/10; 12 22:12 Pulse 62; Resp 14; Pulse Ox 94% ; Pain 5/10; jm12 19:19 Body Mass Index 45.11 (130.63 kg, 170.18 cm) [facility] 19:19 Pain Scale: Adult [facility] 21:11 Pain Scale: Adult [facility] 22:12 Pain Scale: Adult [facility] [place] Coma Score: 22:32 Eye Response: spontaneous(4). Motor Response: obeys commands(6). Verbal Response: sp4 oriented(5). Total: 15. MDM: 19:17 Patient medically screened. ec2 19:32 Data reviewed: vital signs. ED course: Patient arrives today for evaluation of a ec2 headache. Examination remarkable for well-appearing nontoxic dividual's otherwise in no acute distress. Will obtain lab work to evaluate for endorgan dysfunction, will treat the patient's headache.. 19:48 ED course: EKG independently reviewed and interpreted by me, shows normal sinus rhythm, ec2 rate of 68, no acute ST segment elevations, intervals are nonconcerning.. 22:32 Differential diagnosis: migraine, sinusitis, tension headache. ED course: EXAM sp4 DESCRIPTION: CT - Head Brain Wo Cont - 03/10/2024 9:38 pm CLINICAL HISTORY: headache acute COMPARISON: HEAD BRAIN W O CONTRAST dated 11/23/2009 TECHNIQUE: Noncontrast head CT images were obtained without IV contrast. Multiplanar reformats were generated and reviewed. All CT scans are performed using dose optimization technique as appropriate and may include automated exposure control or mA/KV adjustment according to patient size. FINDINGS: No intracranial hemorrhage, mass, or edema. Midline structures are unremarkable. Normal ventricular caliber for age. Mcdonald-white matter differentiation is preserved, without evidence of acute infarct. No abnormal extra-axial fluid collections. Mastoid air cells and visualized portions of the paranasal sinuses are clear. No acute bony findings. IMPRESSION: No evidence of an acute intracranial process. . 03/10 19:22 Order name: Basic Metabolic Panel; Complete Time: 21: ec2 03/10 19:22 Order name: CBC with Diff; Complete Time: 21: ec2 03/10 19:22 Order name: Troponin HS; Complete Time: 21: ec2 03/10 21:08 Order name: CT Head Brain wo Cont; Complete Time: 22:24 sp4 03/10 19:22 Order name: EKG; Complete Time: 19: ec2 03/10 19:22 Order name: Cardiac monitoring; Complete Time: 19:25 ec2 03/10 19:22 Order name: EKG - Nurse/Tech; Complete Time: 20:01 ec2 03/10 19:22 Order name: IV Saline Lock; Complete Time: 20: ec2 03/10 19:22 Order name: Labs collected and sent; Complete Time: 20:01 ec2 03/10 19:22 Order name: O2 Per Protocol; Complete Time: :25 ec2 03/10 19: Order name: O2 Sat Monitoring; Complete Time: : ec2 Administered Medications: 22:48 Discontinued: ns 0.9% 1000 ml IV at 1 bolus Per protocol; 1000 mL bolus 12 19:58 Drug: NS 0.9% IV 1000 ml IV at 1 bolus Per protocol; 1000 mL bolus Route: IV; Rate: 1 jm12 bolus; Site: right antecubital; 19:58 Drug: Ketorolac IVP 15 mg IVP once Route: IVP; Site: right antecubital; [facility] 21:10 Follow up: Response: No adverse reaction; Marked relief of symptoms; Pain is decreased [facility] 19:58 Drug: metoCLOPramide IVP 10 mg IVP once; over 1 to 2 minutes Route: IVP; Site: right [facility] antecubital; 21:10 Follow up: Response: Marked relief of symptoms [facility] 19:58 Drug: diphenhydrAMINE IVP 25 mg IVP once Route: IVP; Site: right antecubital; [facility] 21:10 Follow up: Response: No adverse reaction; Marked relief of symptoms [facility] 22:00 Drug: Losartan PO 100 mg PO once Route: PO; [facility] Disposition Summary: 03/10/24 22:27 Discharge Ordered Notes: Location: Home sp4 Condition: Stable sp4 Diagnosis - Headache sp4 - Essential (primary) hypertension sp4 - ACUTE TENSION TYPE HEADACHE sp4 Followup: ec2 - With: Private Physician - When: - Reason: Re-evaluation by your physician Discharge Instructions: - Hypertension, Adult, [id number] sp4 - Discharge Summary Sheet ec2 Forms: - Patient Portal Instructions sp4 Prescriptions: - Fioricet 50-300-40 mg Oral capsule - take 1 capsule ORAL route every 6 to 8 hours PRN headache; 30 capsule; Refills: sp4 0, Product Selection Permitted - losartan 50 mg Oral tablet - take 1 tablet ORAL route daily; 90 tablet; Refills: 0, Product Selection sp4 Permitted Signatures: Dispatcher [employer] Evangelista Schneider MD MD sp4 Darci Murphy MD MD 2 Susy Lamas RN RN jm12 Corrections: (The following items were deleted from the chart) : 19: BASIC METABOLIC PANEL+C.LAB.BRZ ordered. EDMS EDMS : CBC+H.LAB.BRZ ordered. EDMS EDMS : Troponin High Sensitivity+C.LAB.BRZ ordered. EDMS EDMS
--- NOTE | 2024-03-10 22:28 | ER ---
Nurse's Notes [facility] Name: Victorino Alejo Age: 53 yrs Sex: Male : 1970 Arrival Date: 03/10/2024 Time: 18:59 Bed 20 Private MD: Diagnosis: Headache;Essential (primary) hypertension;ACUTE TENSION TYPE HEADACHE Presentation: 03/10 19:19 Chief complaint: Patient states: headache for 4 days and high blood pressure. [facility] Coronavirus screen: At this time, the client does not indicate any symptoms associated with coronavirus-19. Ebola Screen: No symptoms or risks identified at this time. Initial Sepsis Screen: Does the patient meet any 2 criteria? No. Patient's initial sepsis screen is negative. Does the patient have a suspected source of infection? No. Patient's initial sepsis screen is negative. Risk Assessment: Do you want to hurt yourself or someone else? Patient reports no desire to harm self or others. Onset of symptoms was March 06, 2024. 19:19 Method Of Arrival: Ambulatory [facility] 19:19 Acuity: JIMMY 3 [facility] Triage Assessment: 19:23 Headache History: Denies prior headaches. General: Appears in no apparent distress. [facility] Behavior is calm, cooperative. Pain: Pain currently is 9 out of 10 on a pain scale. Pain began 2-3 days ago. Neuro: No deficits noted. Historical: - Allergies: 19:22 Lisinopril; [facility] - PSHx: 19:22 Appendectomy; foot; [facility] - Immunization history:: Adult Immunizations up to date. - Infectious Disease History:: Denies. - Social history:: Smoking status: unknown. Screenin:24 [facility] ED Fall Risk Assessment (Adult) History of falling in the last 3 months, [facility] including since admission No falls in past 3 months (0 pts) Confusion or Disorientation No (0 pts) Intoxicated or Sedated No (0 pts) Impaired Gait No (0 pts) Mobility Assist Device Used No (0 pt) Altered Elimination No (0 pt) Score/Fall Risk Level 0 - 2 = Low Risk. Abuse screen: Denies threats or abuse. Denies injuries from another. Nutritional screening: No deficits noted. Tuberculosis screening: No symptoms or risk factors identified. Assessment: 19:23 General: Appears in no apparent distress. Behavior is calm, cooperative. Pain: jm12 Complains of pain in scalp Quality of pain is described as throbbing. Neuro: Reports headache. Cardiovascular: No deficits noted. Respiratory: No deficits noted. GI: No deficits noted. No signs and/or symptoms were reported involving the gastrointestinal system. : No deficits noted. No signs and/or symptoms were reported regarding the genitourinary system. EENT: No deficits noted. No signs and/or symptoms were reported regarding the EENT system. Derm: No deficits noted. No signs and/or symptoms reported regarding the dermatologic system. Musculoskeletal: No deficits noted. No signs and/or symptoms reported regarding the musculoskeletal system. Vital Signs: 19:19 BP 169 / 92; Pulse 74; Resp 18; Temp 98.2; Pulse Ox 96% ; Weight 130.63 kg; Height 5 [facility] ft. 7 in. ; Pain 9/10; 21:11 BP 176 / 84; Pulse 66; Resp 14; Pulse Ox 96% ; Pain 4/10; 12 22:12 Pulse 62; Resp 14; Pulse Ox 94% ; Pain 5/10; 12 19:19 Body Mass Index 45.11 (130.63 kg, 170.18 cm) [facility] 19:19 Pain Scale: Adult [facility] 21:11 Pain Scale: Adult [facility] 22:12 Pain Scale: Adult 12 [place] Coma Score: 22:32 Eye Response: spontaneous(4). Motor Response: obeys commands(6). Verbal Response: sp4 oriented(5). Total: 15. ED Course: 19:02 Patient arrived in ED. im 19:03 Dia rAanda [facility]C [facility] sb4 19:03 Darci Murphy MD is Attending Physician. sb4 19:22 Triage completed. jm12 19:23 Arm band placed on. jm12 19:58 Inserted saline lock: 20 gauge in right antecubital area, using aseptic technique. 12 Blood collected. Flushed with 10 mL NS. 20:02 Patient has correct armband on for positive identification. Bed in low position. Call [facility] light in reach. Side rails up X 1. Provided Education on:. 20:02 Basic Metabolic Panel Sent. 12 20:02 CBC with Diff Sent. 12 20:02 Troponin HS Sent. 12 20:10 Attending Physician role handed off by Darci Murphy MD sp4 20:10 Evangelista Kelly MD is Attending Physician. sp4 20:13 Basic Metabolic Panel Sent. jm12 20:13 Troponin HS Sent. jm12 21:40 CT Head Brain wo Cont In Process Unspecified. EDMS 22:47 IV discontinued, intact, bleeding controlled, No redness/swelling at site. Pressure jm12 dressing applied. Administered Medications: 22:48 Discontinued: ns 0.9% 1000 ml IV at 1 bolus Per protocol; 1000 mL bolus jm12 19:58 Drug: NS 0.9% IV 1000 ml IV at 1 bolus Per protocol; 1000 mL bolus Route: IV; Rate: 1 jm12 bolus; Site: right antecubital; 19:58 Drug: Ketorolac IVP 15 mg IVP once Route: IVP; Site: right antecubital; jm12 21:10 Follow up: Response: No adverse reaction; Marked relief of symptoms; Pain is decreased jm12 19:58 Drug: metoCLOPramide IVP 10 mg IVP once; over 1 to 2 minutes Route: IVP; Site: right [facility] antecubital; 21:10 Follow up: Response: Marked relief of symptoms jm12 19:58 Drug: diphenhydrAMINE IVP 25 mg IVP once Route: IVP; Site: right antecubital; jm12 21:10 Follow up: Response: No adverse reaction; Marked relief of symptoms jm12 22:00 Drug: Losartan PO 100 mg PO once Route: PO; jm12 Outcome: 22:27 Discharge ordered by . sp4 22:47 Discharged to home ambulatory, jm12 22:47 Condition: stable 22:47 Discharge instructions given to patient, Instructed on discharge instructions, follow up and referral plans. medication usage, Demonstrated understanding of instructions, follow-up care, medications, Prescriptions given X 2, 22:48 Patient left the ED. jm12 Signatures: Dispatcher [employer] Dia Swenson PA-C PA-C sb4 Potepalov, Sergey, MD MD sp4 Svetlana Buckley Jessica, RN RN jm12
[2024-03-10 22:58] VITALS: TEMP 98.2
[2024-03-10 23:04] VITALS: BP 176/84
[2024-03-10 23:09] VITALS: O2SAT 94
--- NOTE | 2024-03-11 13:27 | EKG ---
Test Date: 2024-03-10 Test Time: 19:45:41 Consulting Technical Manager: GABBY MEASUREMENT RESULTS: Intervals: Rate: 68 SC: 178 QRSD: 98 QT: 394 QTc: 418 [place]: P: 16 SC: 178 QRS: -43 T: 38 INTERPRETIVE STATEMENTS: Normal sinus rhythm Left axis deviation Septal infarct, age undetermined Abnormal ECG No previous ECG available for comparison Electronically Signed On 03-11-24 13:26:20 CDT by [place]
== END 2024-03-10 22:48 | disposition home or self-care (01) ==
LOC: ER 18:59
DX: I10 Essential (primary) hypertension (principal); G44.209 Tension-type headache, unspecified, not intractable
CPT/HCPCS: 93005; 85025; 80048; 36415; 84484; 70450; 96375; 96374; 99284; J2765; J1200; J7030

== ENCOUNTER 2024-03-14 18:42 | Emergency (ER) | payer BC ==
[2024-03-14 19:36] LABS: Absolute Basophils 0.1 K/uL (0-0.5); Absolute Eosinophils 0.1 K/uL (0-0.5); Absolute Monocytes 0.5 K/uL (0.1-1.3); Absolute Neutrophil 7.7 K/uL (1.8-8.0); Basophils % 0.5 % (0-1.3); Eosinophils % 0.8 % (0-4.4); Hematocrit 40.1 % (39.6-49.0); Hemoglobin 13.9 g/dL (13.6-17.9); Lymphocytes % 19.4 % (15.3-44.8); MCHC 34.7 g/dL (32.0-36.0); MCV 92.3 fL (80-100); MPV 8.6 fL (7.6-11.3); Monocytes % 4.7 % (3.3-12.3); Neutrophils % 74.6 % (41.7-73.7); Nucleated Red Blood Cells % 0.2 % (0-0); Platelets 202 thou/uL (152-406); RBC Red Blood Cell Count 4.35 M/uL (4.33-5.43); Red Cell Distribution Width 13.5 % (12.1-15.2)
--- NOTE | 2024-03-14 19:48 | RAD REPORT ---
EXAM DESCRIPTION: Con Single View03/14/2024 7:32 pm CLINICAL HISTORY: Abdominal COMPARISON: 2022 FINDINGS: The lungs appear clear of acute infiltrate. The heart is normal size IMPRESSION: No acute abnormalities displayed
[2024-03-14 20:00] LABS: Anion Gap 7.6 mEq/L (5.0-15.0); Potassium 3.6 mEq/L (3.5-5.1); Troponin High Sensitivity 7.3 pg/mL (<58.9)
--- NOTE | 2024-03-14 21:08 | EDPHYS ---
Physician Documentation [facility] Name: Victorino Alejo Age: 53 yrs Sex: Male : 1970 Arrival Date: 03/14/2024 Time: 18:42 Bed 5 Private MD: ED Physician Brionna Aguilar HPI: 03/14 21:05 This 53 yrs old Male presents to ER via EMS with complaints of High Blood kb Pressure. 21:05 Pt is a 53 year old male who presents for high blood pressure. States he was diagnosed kb with HTN 3 days ago and started on losartan 50mg daily. States he went to check his bp at [employer], but the machine was broken so he bought a cuff. States it read 180/90 then he started feeling shaky and weird so he called 911. Denies headache, dizziness, chest pain. . Historical: - Allergies: 19:01 Lisinopril; ko1 - PMHx: 19:01 Hypertensive disorder; ko1 - PSHx: 19:01 Appendectomy; foot; ko1 - Immunization history:: Adult Immunizations unknown. - Infectious Disease History:: Denies. - Social history:: Smoking status: Patient denies any tobacco usage or history of. ROS: 21:05 Constitutional: As per HPI kb Exam: 20:16 Constitutional: This is a well developed, well nourished patient who is awake, alert, kb and in no acute distress. Head/Face: Normocephalic, atraumatic. ENT: Moist Mucous membranes Cardiovascular: Regular rate Respiratory: Respirations even and unlabored. No increased work of breathing. Talking in full sentences Abdomen/GI: Soft, non-tender. No distention Skin: Warm, dry with normal turgor. Normal color. MS/ Extremity: Pulses equal, no cyanosis. Neurovascular intact. Full, normal range of motion. Neuro: Awake and alert, GCS 15, oriented to person, place, time, and situation. Moves all extremities. Normal gait. 20:16 ECG was reviewed by the Attending Physician. Vital Signs: 18:59 BP 159 / 76; Pulse 68; Resp 18; Temp 97; Pulse Ox 99% on R/A; ko1 19:00 BP 138 / 76; Pulse 69; Resp 17; Pulse Ox 95% ; pc2 20:00 BP 144 / 83; Pulse 74; Resp 18; Pulse Ox 98% on R/A; kj2 21:24 BP 152 / 76; Pulse 78; Resp 18; Temp 98; Pulse Ox 95% on R/A; kj2 MDM: 18:51 Patient medically screened. kb 21:05 Differential diagnosis: hypertensive crisis, Malignant HTN. Data reviewed: vital signs, kb nurses notes. Historians other than the Patient: EMS: [facility]. Counseling: I had a detailed discussion with the patient and/or guardian regarding the historical points, exam findings, and any diagnostic results supporting the discharge/admit diagnosis, lab results, radiology results, the need for outpatient follow up, a family practitioner, to return to the emergency department if symptoms worsen or persist or if there are any questions or concerns that arise at home. 03/14 18:51 Order name: Basic Metabolic Panel; Complete Time: 20:09 kb 03/14 18:51 Order name: CBC with Diff; Complete Time: 19:39 kb 03/14 18:51 Order name: Troponin HS; Complete Time: 20:09 kb 03/14 18:51 Order name: XRAY Chest (1 view); Complete Time: 19:49 kb 03/14 18:51 Order name: EKG; Complete Time: 18:51 kb 03/14 18:51 Order name: Cardiac monitoring; Complete Time: 19:22 kb 03/14 18:51 Order name: EKG - Nurse/Tech; Complete Time: 20:09 kb 03/14 18:51 Order name: IV Saline Lock; Complete Time: 19:22 kb 03/14 18:51 Order name: Labs collected and sent; Complete Time: 19:24 kb 03/14 18:51 Order name: O2 Per Protocol; Complete Time: 19:22 kb 03/14 18:51 Order name: O2 Sat Monitoring; Complete Time: 19:22 kb EC:16 Rate is 71 beats/min. Rhythm is regular. QRS [place] is Normal. OK interval is normal at kb 174 msec. QRS interval is normal at 94 msec. QT interval is normal at 432 msec. Administered Medications: No medications were administered Disposition Summary: 03/14/24 21:07 Discharge Ordered Notes: Location: Home kb Condition: Stable kb Diagnosis - Essential (primary) hypertension kb Followup: kb - With: Emergency Department - When: As needed - Reason: Worsening of condition Followup: kb - With: Private Physician - When: 2 - 3 days - Reason: Recheck today's complaints, Continuance of care, Re-evaluation by your physician Discharge Instructions: - Discharge Summary Sheet kb - Hypertension, Adult, [id number] kb - How to Take Your Blood Pressure, [id number] kb - Managing Your Hypertension kb - Form - Return To Work kj2 Forms: - Medication Reconciliation Form kb - Antibiotic Education kb - Prescription Opioid Use kb - Patient Portal Instructions kb - Leadership Thank You Letter kb - Work release form kj2 Signatures: Dispatcher [employer] Emily Nieves, SHIPPING CLERK CRATING-C LAM-Alejandra Mayo, RN RN ko1
--- NOTE | 2024-03-14 21:08 | ER ---
Nurse's Notes [facility] Name: Victorino Alejo Age: 53 yrs Sex: Male : 1970 Arrival Date: 03/14/2024 Time: 18:42 Bed 5 Private MD: Diagnosis: Essential (primary) hypertension Presentation: 03/14 18:59 Chief complaint: EMS states: on the was dx with htn, took meds today (and an extra ko1 dose) and bp was still high with fingers tingling and a headache just like before. Coronavirus screen: At this time, the client does not indicate any symptoms associated with coronavirus-19. Ebola Screen: No symptoms or risks identified at this time. Initial Sepsis Screen: Does the patient meet any 2 criteria? No. Patient's initial sepsis screen is negative. Does the patient have a suspected source of infection? No. Patient's initial sepsis screen is negative. Risk Assessment: Do you want to hurt yourself or someone else? Patient reports no desire to harm self or others. Onset of symptoms was March 14, 2024. 18:59 Method Of Arrival: EMS: [facility] ko1 18:59 Acuity: JIMMY 3 ko1 Triage Assessment: 19:01 General: Appears in no apparent distress. obese, Behavior is calm, cooperative, ko1 appropriate for age. Pain: Complains of pain in headache. Historical: - Allergies: 19:01 Lisinopril; ko1 - PMHx: 19:01 Hypertensive disorder; ko1 - PSHx: 19:01 Appendectomy; foot; ko1 - Immunization history:: Adult Immunizations unknown. - Infectious Disease History:: Denies. - Social history:: Smoking status: Patient denies any tobacco usage or history of. Screenin:20 [facility] ED Fall Risk Assessment (Adult) History of falling in the last 3 months, pc2 including since admission No falls in past 3 months (0 pts) Confusion or Disorientation No (0 pts) Intoxicated or Sedated No (0 pts) Impaired Gait No (0 pts) Mobility Assist Device Used No (0 pt) Altered Elimination No (0 pt) Score/Fall Risk Level 0 - 2 = Low Risk Oriented to surroundings, Maintained a safe environment, Hourly rounding (assess needs \T\ fall precautionary measures) done. Abuse screen: Denies threats or abuse. Denies injuries from another. Nutritional screening: No deficits noted. Tuberculosis screening: No symptoms or risk factors identified. Assessment: 19:21 General: Appears in no apparent distress. comfortable, well groomed, well developed, pc2 Behavior is calm, cooperative, appropriate for age. Pain: Denies pain. Neuro: Level of Consciousness is awake, alert, obeys commands, Oriented to person, place, time, situation, Appropriate for age Reports having symptoms of dizziness when his blood pressure was high.. Cardiovascular: Heart tones S1 S2 Patient's skin is warm and dry. Respiratory: Airway is patent Respiratory effort is even, unlabored, Respiratory pattern is regular, symmetrical. GI: Abdomen is round non-distended. : No signs and/or symptoms were reported regarding the genitourinary system. EENT: No signs and/or symptoms were reported regarding the EENT system. Derm: No signs and/or symptoms reported regarding the dermatologic system. Musculoskeletal: No signs and/or symptoms reported regarding the musculoskeletal system. Vital Signs: 18:59 BP 159 / 76; Pulse 68; Resp 18; Temp 97; Pulse Ox 99% on R/A; ko1 19:00 BP 138 / 76; Pulse 69; Resp 17; Pulse Ox 95% ; pc2 20:00 BP 144 / 83; Pulse 74; Resp 18; Pulse Ox 98% on R/A; kj2 21:24 BP 152 / 76; Pulse 78; Resp 18; Temp 98; Pulse Ox 95% on R/A; kj2 ED Course: 18:50 Patient arrived in ED. kb 18:50 Emily Girard FNP-C [facility]. kb 18:50 Brionna Aguilar MD is Attending Physician. kb 19:01 Triage completed. ko1 19:01 Arm band placed on right wrist. Patient placed in an exam room, on a stretcher, on ko1 decision support analyst, on pulse oximetry, Patient notified of wait time. 19:20 Patient has correct armband on for positive identification. Bed in low position. Call pc2 light in reach. Side rails up X2. Provided Education on: POC and time frame. 19:20 No provider procedures requiring assistance completed. pc2 19:21 Pulse ox on. NIBP on. pc2 19:22 Inserted saline lock: 22 gauge in right antecubital area, using aseptic technique. vk Blood collected. Flushed with 10 mL NS. 19:23 Initial lab(s) drawn, by me, sent to lab. vk 19:24 Basic Metabolic Panel Sent. pc2 19:24 CBC with Diff Sent. pc2 19:24 Troponin HS Sent. pc2 19:34 XRAY Chest (1 view) In Process Unspecified. EDMS 21:23 Lilia Rush, RN is Primary Nurse. kj2 21:38 IV discontinued, intact, bleeding controlled, No redness/swelling at site. Pressure kj2 dressing applied. Administered Medications: No medications were administered Medication: 19:20 VIS not applicable for this client. pc2 Outcome: 21:07 Discharge ordered by MD. kb 21:24 Discharged to home ambulatory, with family, kj2 21:24 Condition: stable 21:24 Discharge instructions given to patient, family, Instructed on discharge instructions, follow up and referral plans. Demonstrated understanding of instructions, follow-up care, 21:39 Patient left the ED. kj2 Signatures: Dispatcher [employer] EDTX Emily Girard, APPLICATION SUPPORT DEVELOPER-C APPLICATION SUPPORT DEVELOPER-Alejandra Mayo, RN RN ko1 Mackenzie Lugo Pam, RN RN pc2 Lilia Rush, RN RN kj2
[2024-03-14 22:06] VITALS: BP 152/76; TEMP 98; O2SAT 95
--- NOTE | 2024-03-15 12:39 | EKG ---
Test Date: 2024-03-14 Test Time: 20:11:24 Jack Spooler Tender: NADIA MEASUREMENT RESULTS: Intervals: Rate: 71 [place]: 174 QRSD: 94 QT: 398 QTc: 432 [place]: P: 35 [place]: 174 QRS: 141 T: 2 INTERPRETIVE STATEMENTS: Normal sinus rhythm Anteroseptal infarct, age undetermined Abnormal ECG Compared to ECG 03/10/2024 19:45:41 Left-axis deviation no longer present Myocardial infarct finding still present Electronically Signed On 03-15-24 12:38:04 CDT by Rancho Watson
== END 2024-03-14 21:39 | disposition home or self-care (01) ==
LOC: ER 18:42
DX: I10 Essential (primary) hypertension (principal)
CPT/HCPCS: 36415; 71045; 80048; 84484; 85025; 93005; 99284

== ENCOUNTER 2024-03-15 09:57 | Emergency (ER) | payer BC ==
[2024-03-15 10:48] LABS: Anion Gap 6.9 mEq/L (5.0-15.0); Potassium 3.9 mEq/L (3.5-5.1); Troponin High Sensitivity 5.9 pg/mL (<58.9)
--- NOTE | 2024-03-15 11:07 | RAD REPORT ---
EXAM DESCRIPTION: CT - Head Brain Wo Cont - 03/15/2024 10:38 am CLINICAL HISTORY: HEADACHE COMPARISON: Head Brain Wo Cont dated 03/10/2024; HEAD BRAIN W O CONTRAST dated 11/23/2009 TECHNIQUE: Noncontrast head CT images were obtained without IV contrast. Multiplanar reformats were generated and reviewed. All CT scans are performed using dose optimization technique as appropriate and may include automated exposure control or mA/KV adjustment according to patient size. FINDINGS: No intracranial hemorrhage, mass, or edema. Midline structures are unremarkable. Normal ventricular caliber for age. Mcdonald-white matter differentiation is preserved, without evidence of acute infarct. No abnormal extra- axial fluid collections. Mastoid air cells and visualized portions of the paranasal sinuses are clear. No acute bony findings. IMPRESSION: No evidence of an acute intracranial process.
--- NOTE | 2024-03-15 11:15 | EDPHYS ---
Physician Documentation [facility] Name: Victorino Alejo Age: 53 yrs Sex: Male : 1970 Arrival Date: 03/15/2024 Time: 09:57 Bed 16 Private MD: ED Physician Brionna Aguilar HPI: 03/15 10:18 This 53 yrs old Male presents to ER via Ambulatory with complaints of High sp3 Blood Pressure. 10:18 . sp3 10:24 53-year-old male with a history of hypertension seen last night for high blood pressure sp3 as well with full workup except for CT scan of the head because she did not have a headache at that time now presents again today for blood pressure this morning of 190/100 and mild headache. Patient arrives now and her blood pressure in the ED is 154/80. Patient's headache is mild in nature. No other symptoms reported including fever, neck pain, chest pain, shortness of breath, abdominal pain, nausea, vomiting, diarrhea, syncope, near syncope, or any other signs or symptoms on ROS at this time.. Historical: - Allergies: 10:04 Lisinopril; mb9 - Home Meds: 10:14 losartan 50 mg oral tablet [Active]; mb9 - PMHx: 10:04 Hypertensive disorder; mb9 - PSHx: 10:04 Appendectomy; foot; mb9 - Immunization history:: Adult Immunizations up to date. - Infectious Disease History:: Denies. - Social history:: Smoking status: Patient denies any tobacco usage or history of. ROS: 10:25 Constitutional: Negative for fever, chills, and weight loss, Eyes: Negative for injury, sp3 pain, redness, and discharge, ENT: Negative for injury, pain, and discharge, Neck: Negative for injury, pain, and swelling, Cardiovascular: Negative for chest pain, palpitations, and edema, Respiratory: Negative for shortness of breath, cough, wheezing, and pleuritic chest pain, Abdomen/GI: Negative for abdominal pain, nausea, vomiting, diarrhea, and constipation, Back: Negative for injury and pain, MS/Extremity: Negative for injury and deformity, Skin: Negative for injury, rash, and discoloration, Neuro: Negative for headache, weakness, numbness, tingling, and seizure, Psych: Negative for depression, anxiety, suicide ideation, homicidal ideation, and hallucinations, Allergy/Immunology: Negative for hives, rash, and allergies, Endocrine: Negative for neck swelling, polydipsia, polyuria, polyphagia, and marked weight changes, Hematologic/Lymphatic: Negative for swollen nodes, abnormal bleeding, and unusual bruising, 10:25 All other systems are negative, Exam: 10:25 Constitutional: This is a well developed, well nourished patient who is awake, alert, sp3 and in no acute distress. Head/Face: Normocephalic, atraumatic. Eyes: Pupils equal round and reactive to light, extra-ocular motions intact. Lids and lashes normal. Conjunctiva and sclera are non-icteric and not injected. Cornea within normal limits. Periorbital areas with no swelling, redness, or edema. Neck: Trachea midline, no thyromegaly or masses palpated, and no cervical lymphadenopathy. Supple, full range of motion without nuchal rigidity, or vertebral point tenderness. No Meningismus. Chest/axilla: Normal chest wall appearance and motion. Nontender with no deformity. No lesions are appreciated. Cardiovascular: Regular rate and rhythm with a normal S1 and S2. No gallops, murmurs, or rubs. Normal PMI, no JVD. No pulse deficits. Respiratory: Lungs have equal breath sounds bilaterally, clear to auscultation and percussion. No rales, rhonchi or wheezes noted. No increased work of breathing, no retractions or nasal flaring. Abdomen/GI: Soft, non-tender, with normal bowel sounds. No distension or tympany. No guarding or rebound. No evidence of tenderness throughout. Back: No spinal tenderness. No costovertebral tenderness. Full range of motion. Skin: Warm, dry with normal turgor. Normal color with no rashes, no lesions, and no evidence of cellulitis. MS/ Extremity: Pulses equal, no cyanosis. Neurovascular intact. Full, normal range of motion. Neuro: Awake and alert, GCS 15, oriented to person, place, time, and situation. Cranial nerves II-XII grossly intact. Motor strength 5/5 in all extremities. Sensory grossly intact. Cerebellar exam normal. Normal gait. Psych: Awake, alert, with orientation to person, place and time. Behavior, mood, and affect are within normal limits. 10:25 ECG was reviewed by the Attending Physician. EKG demonstrates normal sinus rhythm at 65 bpm with normal intervals, normal QRS, normal axis, nonspecific diffuse ST's ST changes without evidence of acute ischemia. Vital Signs: 10:12 BP 154 / 95; Pulse 73; Resp 18; Temp 98; Pulse Ox 100% ; Weight 129.27 kg; Height 5 ft. mb9 7 in. ; Pain 0/10; 10:58 BP 137 / 89; Pulse 64; Resp 16; Pulse Ox 96% ; dd2 11:24 BP 139 / 80; Pulse 68; Resp 16; Temp 98.3; Pulse Ox 98% ; dd2 10:12 Body Mass Index 44.64 (129.27 kg, 170.18 cm) mb9 10:12 Pain Scale: Adult mb9 MDM: 10:04 Patient medically screened. sp3 10:25 Data reviewed: vital signs, nurses notes, lab test result(s), EKG, radiologic studies. sp3 ED course: 53-year-old male with a now resolved hypertension and now headache. Will assess for endorgan damage goading CT scan of the head, creatinine and troponin. EKG is normal. If workup negative and blood pressure remains at its current stage, we will safely discharge patient home to PCP follow-up. Patient did take his losartan this morning which I believe is led to his decrease in blood pressure. I have advised him to keep a blood pressure journal with 3 times a day readings or more as he sees fit.. 11:13 ED course: Laboratory values negative and CT scan is also negative. Blood pressure sp3 remains normal with last reading 137/89. Will safely discharge patient home at this time.. 03/15 10:17 Order name: BMP; Complete Time: 10:49 sp3 03/15 10:17 Order name: Troponin High Sensitivity; Complete Time: 10:49 sp3 03/15 10:17 Order name: CT Head Brain wo Cont; Complete Time: 11:12 sp3 03/15 10:17 Order name: EKG; Complete Time: 10:17 sp3 03/15 10:17 Order name: EKG - Nurse/Tech; Complete Time: 10:17 sp3 03/15 10:17 Order name: IV Saline Lock; Complete Time: 10:17 mb9 Administered Medications: No medications were administered Disposition Summary: 03/15/24 11:14 Discharge Ordered Notes: Location: Home sp3 Condition: Stable sp3 Diagnosis - Hypertensive urgency, resolved sp3 Followup: sp3 - With: Private Physician - When: Upon discharge from the Emergency Department - Reason: Continuance of care Discharge Instructions: - Discharge Summary Sheet sp3 - Hypertension, Adult sp3 Forms: - Medication Reconciliation Form sp3 - Antibiotic Education sp3 - Prescription Opioid Use sp3 - Patient Portal Instructions sp3 - Leadership Thank You Letter sp3 Signatures: Dispatcher [employer] Brionna Frausto MD MD sp3 Zenaida Rubin RN RN mb9
--- NOTE | 2024-03-15 11:15 | ER ---
Nurse's Notes [facility] Name: Victorino Alejo Age: 53 yrs Sex: Male : 1970 Arrival Date: 03/15/2024 Time: 09:57 Bed 16 Private MD: Diagnosis: Hypertensive urgency, resolved Presentation: 03/15 10:12 Chief complaint: Patient states: "I woke up and my BP was 190/100. I feel disoriented, mb9 shaky, and have a throbbing headache. I reecently started Losartan 50 mg 1 week ago.". Coronavirus screen: Vaccine status: Patient reports receiving the 2nd dose of the covid vaccine. Ebola Screen: No symptoms or risks identified at this time. Initial Sepsis Screen: Does the patient meet any 2 criteria? No. Patient's initial sepsis screen is negative. Does the patient have a suspected source of infection? No. Patient's initial sepsis screen is negative. Risk Assessment: Do you want to hurt yourself or someone else? Patient reports no desire to harm self or others. Onset of symptoms was March 15, 2024. 10:12 Method Of Arrival: Ambulatory mb9 10:12 Acuity: JIMMY 3 mb9 Triage Assessment: 10:14 General: Appears in no apparent distress. Behavior is cooperative, anxious. Pain: mb9 Complains of pain in head. EENT: No signs and/or symptoms were reported regarding the EENT system. Neuro: Gutierrez Agitation-Sedation Scale (RASS): 0 - Alert and Calm Level of Consciousness is awake, alert, obeys commands, Oriented to person, place, time, situation, Appropriate for age. Neuro: Reports headache. Cardiovascular: Denies chest pain, Patient's skin is warm and dry. Rhythm is regular. Respiratory: Airway is patent Respiratory effort is even, unlabored, Respiratory pattern is regular, symmetrical. GI: No signs and/or symptoms were reported involving the gastrointestinal system. : No signs and/or symptoms were reported regarding the genitourinary system. Derm: Skin is pink, warm \\T\\ dry. Musculoskeletal: Range of motion: intact in all extremities. Historical: - Allergies: 10:04 Lisinopril; mb9 - Home Meds: 10:14 losartan 50 mg oral tablet [Active]; mb9 - PMHx: 10:04 Hypertensive disorder; mb9 - PSHx: 10:04 Appendectomy; foot; mb9 - Immunization history:: Adult Immunizations up to date. - Infectious Disease History:: Denies. - Social history:: Smoking status: Patient denies any tobacco usage or history of. Screenin:23 [facility] ED Fall Risk Assessment (Adult) History of falling in the last 3 months, dd2 including since admission No falls in past 3 months (0 pts) Confusion or Disorientation No (0 pts) Intoxicated or Sedated No (0 pts) Impaired Gait No (0 pts) Mobility Assist Device Used No (0 pt) Altered Elimination No (0 pt) Score/Fall Risk Level 0 - 2 = Low Risk Oriented to surroundings, Maintained a safe environment, Hourly rounding (assess needs \\T\\ fall precautionary measures) done. Abuse screen: Denies threats or abuse. Nutritional screening: No deficits noted. Tuberculosis screening: No symptoms or risk factors identified. Assessment: 10:23 Reassessment: SEE TRIAGE FOR FULL ASSESSMENT. dd2 11:18 Reassessment: No changes from previously documented assessment. Patient and/or family mb9 updated on plan of care and expected duration. Pain level reassessed. Patient is alert, oriented x 3, equal unlabored respirations, skin warm/dry/pink. Vital Signs: 10:12 BP 154 / 95; Pulse 73; Resp 18; Temp 98; Pulse Ox 100% ; Weight 129.27 kg; Height 5 ft. mb9 7 in. ; Pain 0/10; 10:58 BP 137 / 89; Pulse 64; Resp 16; Pulse Ox 96% ; dd2 11:24 BP 139 / 80; Pulse 68; Resp 16; Temp 98.3; Pulse Ox 98% ; dd2 10:12 Body Mass Index 44.64 (129.27 kg, 170.18 cm) mb9 10:12 Pain Scale: Adult mb9 ED Course: 09:59 Patient arrived in ED. mr 10:00 Brionna Aguilar MD is Attending Physician. sp3 10:04 Arm band placed on. mb9 10:08 JONES RIVERA, LO is Primary Nurse. dd2 10:14 Triage completed. mb9 10:15 Initial lab(s) drawn, by ct, sent to lab. Inserted saline lock: 22 gauge in left mb9 antecubital area, using aseptic technique. Blood collected. Flushed with 10 mL NS. 10:23 Patient has correct armband on for positive identification. Bed in low position. Call dd2 light in reach. Side rails up X 1. Provided Education on: CALL LIGHT, LABS, EKG. Door closed. Warm blanket given. 10:23 EKG done, by ED staff, reviewed by Brionna Aguilar MD. dd2 10:23 No provider procedures requiring assistance completed. dd2 10:40 CT Head Brain wo Cont In Process Unspecified. EDMS 11:24 IV discontinued, intact, bleeding controlled, No redness/swelling at site. Pressure dd2 dressing applied. Administered Medications: No medications were administered Medication: 10:23 VIS not applicable for this client. dd2 Outcome: 11:14 Discharge ordered by . sp3 11:24 Discharged to home ambulatory, dd2 11:24 Condition: stable 11:24 Discharge instructions given to patient, Instructed on discharge instructions, follow up and referral plans. Demonstrated understanding of instructions, follow-up care, 11:25 Patient left the ED. dd2 Signatures: Dispatcher [employer] EDSD Zenaida Stout, Reg Reg Brionna Vásquez MD MD sp3 Zenaida Rubin, RN RN mb9 JONES RIVERA RN RN dd2
[2024-03-15 11:50] VITALS: BP 139/80; TEMP 98.3; O2SAT 98
--- NOTE | 2024-03-17 12:59 | EKG ---
Test Date: 2024-03-15 Test Time: 10:16:46 Heat Treater Helper: AMY MEASUREMENT RESULTS: Intervals: Rate: 65 [place]: 178 QRSD: 90 QT: 402 QTc: 418 [place]: P: 68 [place]: 178 QRS: 126 T: 36 INTERPRETIVE STATEMENTS: Normal sinus rhythm Anteroseptal infarct, age undetermined Abnormal ECG Compared to ECG 03/14/2024 20:11:24 No significant changes Electronically Signed On 03-17-24 12:56:55 CDT by Rancho Watson
== END 2024-03-15 11:25 | disposition home or self-care (01) ==
LOC: ER 09:57
DX: I16.0 Hypertensive urgency (principal); I10 Essential (primary) hypertension
CPT/HCPCS: 36415; 70450; 80048; 84484; 93005; 99284

== ENCOUNTER 2024-05-19 19:46 | Emergency (ER) | payer BC ==
--- OUTSIDE RECORDS SUMMARY | 2024-05-19 19:48 | XMS REPORT | Continuity of Care Document ---
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
[2024-05-19 20:21] LABS: Absolute Eosinophils 0.1 K/uL (0-0.5); Absolute Lymphocytes (CBC) 1.6 K/uL (0.7-4.9); Absolute Monocytes 0.8 K/uL (0.1-1.3); Absolute Neutrophil 9.7 K/uL (1.8-8.0); Basophils % 0.2 % (0-1.3); Eosinophils % 0.4 % (0-4.4); Hematocrit 40.3 % (39.6-49.0); Hemoglobin 13.9 g/dL (13.6-17.9); Lymphocytes % 13.5 % (15.3-44.8); MCH 31.6 pg (27.0-35.0); MCHC 34.4 g/dL (32.0-36.0); MCV 91.8 fL (80-100); MPV 8.4 fL (7.6-11.3); Monocytes % 6.4 % (3.3-12.3); Neutrophils % 79.5 % (41.7-73.7); Nucleated Red Blood Cells % 0.1 % (0-0); Platelets 184 thou/uL (152-406); Red Cell Distribution Width 13.2 % (12.1-15.2)
[2024-05-19 20:40] LABS: ALT/SGPT 25 U/L (16-61); AST/SGOT 11 U/L (15-37); Albumin 3.8 g/dL (3.4-5.0); Alkaline Phosphatase 96 U/L (45-117); Anion Gap 8.5 mEq/L (5.0-15.0); BUN Blood Urea Nitrogen 13 mg/dL (7-18); Bicarbonate 26 mEq/L (21-32); Bilirubin Total 0.6 mg/dL (0.2-1.0); Globulin 3.7 g/dL (2.3-3.5); Glomerular Filtration Rate 80 ml/min (=/>90); Glucose Level 142 mg/dL (74-106); Magnesium 1.8 mg/dL (1.6-2.4); Potassium 3.5 mEq/L (3.5-5.1); Protein, Total 7.5 g/dL (6.4-8.2); Sodium Level 138 mEq/L (136-145); Troponin High Sensitivity 4.8 pg/mL (<58.9)
[2024-05-19 20:47] LABS: Bilirubin Direct < 0.2 mg/dL (0-0.2); Bilirubin Indirect, Calculated 0.4 mg/dL (0.2-0.8)
--- NOTE | 2024-05-19 20:50 | RAD REPORT ---
Procedure: Chest Single View HISTORY: Palpitations COMPARISON: February 2024 FINDINGS: The lungs appear clear of acute infiltrate. No significant pleural effusion noted. The heart is normal size. IMPRESSION: No acute abnormality is displayed.
--- NOTE | 2024-05-19 21:31 | RAD REPORT ---
EXAMINATION: US bilateral LOWER EXTREMITY VENOUS DOPPLER CLINICAL INDICATION: Leg pain TECHNIQUE: Sonographic evaluation of the veins of the lower extremity bilaterally formed.Grayscale, c olor and spectral analysis performed on all vessels COMPARISON: No prior exam. FINDINGS: The common femoral, superficial femoral, greater saphenous, popliteal and posterior tibial veins bila terally are compressible and demonstrate augmentation. Doppler demonstrates good flow. IMPRESSION: No evidence of deep venous thrombosis involving either lower extremity
--- NOTE | 2024-05-19 21:40 | ER ---
Nurse's Notes [facility] Name: Victorino Alejo Age: 53 yrs Sex: Male : 1970 Arrival Date: 05/19/2024 Time: 19:46 Bed 4 Private MD: Diagnosis: Palpitations Presentation: 05/19 19:59 Chief complaint: Patient states: Was watching tv and felt his heart rate spike. Pt cm10 states that he checked it and it was in the 120s. Pt also reports bilateral leg pain and swelling. Coronavirus screen: Client denies travel out of the [place] in the last 14 days. Ebola Screen: Patient denies travel to an Ebola-affected area in the 21 days before illness onset. No symptoms or risks identified at this time. Initial Sepsis Screen: Does the patient meet any 2 criteria? No. Patient's initial sepsis screen is negative. Does the patient have a suspected source of infection? No. Patient's initial sepsis screen is negative. Risk Assessment: Do you want to hurt yourself or someone else? Patient reports no desire to harm self or others. Onset of symptoms was May 19, 2024. 19:59 Method Of Arrival: Ambulatory cm10 19:59 Acuity: JIMMY 3 cm10 Triage Assessment: 20:01 General: Appears in no apparent distress. comfortable, Behavior is calm, cooperative. cm10 Neuro: No deficits noted. Level of Consciousness is awake, alert, obeys commands, Oriented to person, place, time, situation, Appropriate for age. Respiratory: No deficits noted. Airway is patent Respiratory effort is even, unlabored, Respiratory pattern is regular, symmetrical. Historical: - Allergies: 20:01 Lisinopril; cm10 - PMHx: 20:01 Hypertensive disorder; cm10 - PSHx: 20:01 Appendectomy; foot; cm10 - Immunization history:: Adult Immunizations up to date. - Infectious Disease History:: Denies. - Social history:: Smoking status: Patient denies any tobacco usage or history of. Screenin:00 [facility] ED Fall Risk Assessment (Adult) History of falling in the last 3 months, tm6 including since admission No falls in past 3 months (0 pts) Confusion or Disorientation No (0 pts) Intoxicated or Sedated No (0 pts) Impaired Gait No (0 pts) Mobility Assist Device Used No (0 pt) Altered Elimination No (0 pt) Score/Fall Risk Level 0 - 2 = Low Risk Oriented to surroundings, Maintained a safe environment, Educated pt \T\ family on fall prevention, incl call for assistance when getting out of bed. Abuse screen: Denies threats or abuse. Denies injuries from another. Nutritional screening: No deficits noted. Tuberculosis screening: No symptoms or risk factors identified. Assessment: 20:00 General: Appears in no apparent distress. Behavior is calm, cooperative. Pain: tm6 Complains of pain in right leg and left leg Pain does not radiate. Pain currently is 8 out of 10 on a pain scale. Pain began. Neuro: Level of Consciousness is awake, alert, obeys commands, Oriented to person, place, time, situation. Cardiovascular: Reports palpitations, Patient's skin is warm and dry. Edema is absent. patient states his legs feel like they are swollen, but do not appear to be swollen to patient Rhythm is sinus rhythm. Respiratory: Airway is patent Respiratory effort is even, unlabored, Respiratory pattern is regular, symmetrical. GI: Abdomen is round. : No signs and/or symptoms were reported regarding the genitourinary system. EENT: No signs and/or symptoms were reported regarding the EENT system. Derm: No signs and/or symptoms reported regarding the dermatologic system. Musculoskeletal: Reports pain in right foot, left foot, right leg and left leg Pain is 8 out of 10 on a pain scale. 21:00 Reassessment: Patient and/or family updated on plan of care and expected duration. Pain ha1 level reassessed. Patient is alert, oriented x 3, equal unlabored respirations, skin warm/dry/pink. 21:58 Reassessment: Patient and/or family updated on plan of care and expected duration. Pain ha1 level reassessed. Patient is alert, oriented x 3, equal unlabored respirations, skin warm/dry/pink. Patient denies pain at this time. Patient states feeling better. Patient states symptoms have improved. Vital Signs: 19:59 BP 155 / 75; Pulse 99; Resp 18; Temp 98.7(O); Pulse Ox 95% ; Weight 124.74 kg; Height 5 cm10 ft. 7 in. ; Pain 8/10; 21:20 BP 136 / 74; Pulse 82; Resp 17 S; Pulse Ox 99% on R/A; ha1 19:59 Body Mass Index 43.07 (124.74 kg, 170.18 cm) cm10 19:59 Pain Scale: Adult cm10 ED Course: 19:50 Patient arrived in ED. jj6 19:54 Dia Aranda PA-C is PHCP. sb4 19:54 Darci Murphy MD is Attending Physician. sb4 20:00 Fior Sanches RN is Primary Nurse. tm6 20:00 Triage completed. cm10 20:00 EKG done, by ED staff, reviewed by Dia Aranda PA-C. tm6 20:00 Patient maintains SpO2 saturation greater than 95% on room air. tm6 20:00 Patient has correct armband on for positive identification. Bed in low position. Call tm6 light in reach. Side rails up X 1. Provided Education on: use of call buckner. Client placed on continuous cardiac and pulse oximetry monitoring. NIBP monitoring applied. property assessment monitor on. Pulse ox on. NIBP on. Door closed. Noise minimized. Warm blanket given. 20:01 Arm band placed on left wrist. Patient placed in an exam room, on a stretcher. EKG cm10 completed in triage. Results shown to MD. 20:05 No provider procedures requiring assistance completed. Inserted saline lock: 20 gauge ha1 in right antecubital area, using aseptic technique. Blood collected. Flushed with 10 mL NS. 20:29 XRAY Chest (1 view) In Process Unspecified. EDMS 20:55 Extrem Venous W Compression Joseph US In Process Unspecified. EDMS 21:39 José Henry MD is Referral Physician. sb4 21:59 IV discontinued, intact, bleeding controlled, No redness/swelling at site. Pressure ha1 dressing applied. Administered Medications: No medications were administered Medication: 20:00 VIS not applicable for this client. tm6 Outcome: 21:39 Discharge ordered by . sb4 21:59 Discharged to home ambulatory, ha1 21:59 Condition: stable 21:59 Discharge instructions given to patient, Instructed on discharge instructions, follow up and referral plans. Demonstrated understanding of instructions, follow-up care, 21:59 Patient left the ED. ha1 Signatures: Dispatcher [employer] EDMS Marisel Caballero jj6 Lila Schulte RN RN haDia Johnson PA-C PAJaleel sb4 Carolee Juan, RN RN cm10 Fior Sanches RN RN tm6 Corrections: (The following items were deleted from the chart) 20:08 20:07 Reassessment: soft wrist restraints removed, due to [place] [employer] policy. tm6 tm6
--- NOTE | 2024-05-19 21:40 | EDPHYS ---
Physician Documentation [facility] Name: Victorino Alejo Age: 53 yrs Sex: Male : 1970 Arrival Date: 05/19/2024 Time: 19:46 Bed 4 Private MD: ED Physician Darci Murphy HPI: 05/19 19:58 This 53 yrs old Male presents to ER via Unassigned with complaints of sb4 Irregular Pulse, Swelling of Lower Extremity. 20:00 Patient states that he was watching TV this evening when he felt like his heart was sb4 racing. He he states that he checked his vitals and saw his pulse was in the 120s and his blood pressure was also elevated. States that he took a quarter of his clonidine. States that his symptoms have improved since. He is concerned because he also feels like his lower extremities have been colder. Denies any chest pain or shortness of breath. Historical: - Allergies: 20:01 Lisinopril; cm10 - PMHx: 20:01 Hypertensive disorder; cm10 - PSHx: 20:01 Appendectomy; foot; cm10 - Immunization history:: Adult Immunizations up to date. - Infectious Disease History:: Denies. - Social history:: Smoking status: Patient denies any tobacco usage or history of. ROS: 20:00 Constitutional: Negative for fever, chills, and weight loss, sb4 20:00 Cardiovascular: Positive for palpitations, 20:00 MS/extremity: Positive for Per HPI, 20:00 All other systems are negative, Exam: 20:00 Constitutional: This is a well developed, well nourished patient who is awake, alert, sb4 and in no acute distress. Head/Face: Normocephalic, atraumatic. Eyes: Extra-ocular motions intact. Periorbital areas with no swelling, redness, or edema. ENT: Mucous membranes moist. Cardiovascular: Regular rate and rhythm with a normal S1 and S2. Respiratory: No increased work of breathing, no retractions or nasal flaring. Abdomen/GI: Soft, non-tender, no distension. Skin: Warm, dry with normal turgor. Normal color with no rashes, no lesions, and no evidence of cellulitis. MS/ Extremity: Pulses equal, no cyanosis. Neurovascular intact. Full, normal range of motion. Vital Signs: 19:59 BP 155 / 75; Pulse 99; Resp 18; Temp 98.7(O); Pulse Ox 95% ; Weight 124.74 kg; Height 5 cm10 ft. 7 in. ; Pain 8/10; 21:20 BP 136 / 74; Pulse 82; Resp 17 S; Pulse Ox 99% on R/A; ha1 19:59 Body Mass Index 43.07 (124.74 kg, 170.18 cm) cm10 19:59 Pain Scale: Adult cm10 MDM: 19:54 Medical Screening Exam initiated sb4 21:38 Data reviewed: vital signs, nurses notes, lab test result(s), EKG, radiologic studies, sb4 and as a result, I will discharge patient. 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 05/19 19:58 Order name: Basic Metabolic Panel; Complete Time: 20:47 sb4 05/19 19:58 Order name: CBC with Diff; Complete Time: 20:26 sb4 05/19 19:58 Order name: LFT's; Complete Time: 20:47 sb4 05/19 19:58 Order name: Magnesium; Complete Time: 20:47 sb4 05/19 19:58 Order name: Troponin HS; Complete Time: 20:47 sb4 05/19 19:58 Order name: XRAY Chest (1 view); Complete Time: 20:51 sb4 05/19 19:58 Order name: Extrem Venous W Compression Joseph US; Complete Time: 21:32 sb4 05/19 19:58 Order name: Cardiac monitoring; Complete Time: 20:07 sb4 05/19 19:58 Order name: EKG - Nurse/Tech; Complete Time: 19:59 sb4 05/19 19:58 Order name: IV Saline Lock; Complete Time: 20:07 sb4 05/19 19:58 Order name: Labs collected and sent; Complete Time: 20:07 sb4 05/19 19:58 Order name: O2 Per Protocol; Complete Time: 20:07 sb4 05/19 19:58 Order name: O2 Sat Monitoring; Complete Time: 20:07 sb4 EC:59 Rate is 92 beats/min. Rhythm is regular, Normal Sinus Rhythm. Right axis deviation sb4 noted. HI interval is normal at 164 msec. QRS interval is normal at 86 msec. QT interval is normal at 352 msec. No Q waves. T waves are Normal. No ST changes noted. Clinical impression: No evidence of ischemia. Interpreted by me. Reviewed by me. Administered Medications: No medications were administered Disposition Summary: 05/19/24 21:39 Discharge Ordered Notes: Location: Home sb4 Problem: new sb4 Symptoms: have improved sb4 Condition: Stable sb4 Diagnosis - Palpitations sb4 Followup: sb4 - With: José Henry MD - When: 1 week - Reason: Recheck today's complaints, Re-evaluation by your physician Discharge Instructions: - Discharge Summary Sheet sb4 - Palpitations sb4 Forms: - Patient Portal Instructions sb4 - Leadership Thank You Letter sb4 Addendum: 05/21/2024 17:51 I was immediately available for consultation during this patient's visit. I did not e c2 personally see the patient or discuss the patient with the JULIANA. . Signatures: Dispatcher [employer] Dia Swenson PA-C PA-C sb4 Carolee Juan RN RN cm10 Darci Murphy MD MD ec2 Corrections: (The following items were deleted from the chart) 05/19 19:58 19:58 Extrem Venous W Compression Joseph+US.RAD.BRZ ordered. EDMS SOILA
[2024-05-19 22:08] VITALS: TEMP 98.7
[2024-05-19 22:14] VITALS: BP 136/74; O2SAT 99
--- NOTE | 2024-05-23 12:22 | EKG ---
Test Date: 2024-05-19 Test Time: 19:57:53 State Game Protector: CHAVEZ MEASUREMENT RESULTS: Intervals: Rate: 92 WY: 164 QRSD: 86 QT: 352 QTc: 435 [place]: P: 43 WY: 164 QRS: -90 T: 44 INTERPRETIVE STATEMENTS: Normal sinus rhythm Right superior axis deviation Abnormal ECG Compared to ECG 03/15/2024 10:16:46 Right superior axis now present Myocardial infarct finding no longer present Electronically Signed On 05-23-24 12:17:29 DEPARTMENT STORE MANAGER by [place]
== END 2024-05-19 21:59 | disposition home or self-care (01) ==
LOC: ER 19:46
DX: R00.2 Palpitations (principal); I10 Essential (primary) hypertension
CPT/HCPCS: 36415; 71045; 80048; 80076; 83735; 84484; 85025; 93005; 93970; 99284

== ENCOUNTER 2024-05-25 04:10 | Emergency (ER) | payer BC ==
--- OUTSIDE RECORDS SUMMARY | 2024-05-25 04:13 | XMS REPORT | Continuity of Care Document ---
Author Name Unknown Address [address] [place] [address] th[address] Address [address] [place] [address] [address] [place] [address] Care Team Providers Care Photovoltaic Installation Technician Name Role Phone Unavailable Unavailable Unavailable Encounters Start Date/Time End Date/Time Encounter Type Admission Type Attending Clinicians Care Facility Care Department Encounter ID Source 2024-03-15 15:15:31 2024-03-15 15:15:31 Outpatient [facility] [id number] Zafar Vargas
[2024-05-25] MEDS ORDERED: CEFTRIAXONE 1000 MG/VIAL ONE (05:26)
[2024-05-25] MEDS ORDERED: ACETAMINOPHEN 500 MG TAB ONE (05:26)
[2024-05-25] MEDS ORDERED: IBUPROFEN 400 MG TAB ONE (05:26)
[2024-05-25] MEDS ORDERED: GUAIFENESIN/DM 5 ML UCUP ONE (05:27)
[2024-05-25] MEDS ORDERED: BENZONATATE 100 MG CAP PO ONE (05:27)
[2024-05-25] MEDS ORDERED: WATER FOR INJ,STERILE 10 ML ONE (05:43)
--- NOTE | 2024-05-25 05:52 | RAD REPORT ---
EXAM DESCRIPTION: Chest Pa And Lat (2 Views) CLINICAL HISTORY: COUGH COMPARISON: None TECHNIQUE: PA and lateral views of the chest. FINDINGS: Lung volumes adequate. Cardiac silhouette is normal in size. No pneumothorax. No large pleural effusion. No focal consolidation. No acute bony finding. IMPRESSION: No evidence of acute cardiopulmonary disease. Electronically signed by: Bong Ruiz MD 05/25/2024 05:20 AM [facility] Z9 Due to temporary technical issues with the PACS/Boomr reporting system, reports are being meaghan d by the in-house radiologist without review as a courtesy to ensure prompt reporting the interpreting radiologist is fully responsible for the content of the report. Transcribed Date/Time: 05/25/2024 5:52 AM
[2024-05-25 05:59] LABS: SARS-CoV-2 Antigen CONTROL BLUE LINE VIS/BG OK; SARS-CoV-2 Antigen Rapid Res Negative (Negative)
--- NOTE | 2024-05-25 06:06 | ER ---
Nurse's Notes [facility] Name: Victorino Alejo Age: 53 yrs Sex: Male : 1970 Arrival Date: 05/25/2024 Time: 04:10 Bed 19 Private MD: Diagnosis: Cough;Acute pharyngitis, unspecified Presentation: 05/25 04:14 Chief complaint: Patient states: DRY COUGH FOR OVER A WEEK. ha1 04:14 Coronavirus screen: Vaccine status: Patient reports being unvaccinated. Ebola Screen: ha1 No symptoms or risks identified at this time. Initial Sepsis Screen: Does the patient meet any 2 criteria? No. Patient's initial sepsis screen is negative. Does the patient have a suspected source of infection? No. Patient's initial sepsis screen is negative. Risk Assessment: Do you want to hurt yourself or someone else? Patient reports no desire to harm self or others. Onset of symptoms was May 20, 2024. 04:14 Method Of Arrival: Ambulatory ha1 04:14 Acuity: JIMMY 4 ha1 Triage Assessment: 04:14 General: Appears uncomfortable, Behavior is cooperative. Pain:. Neuro: Level of ha1 Consciousness is awake, alert, obeys commands, Oriented to person, place, time, situation. Cardiovascular: Patient's skin is warm and dry. Respiratory: Reports cough that is non-productive, dry, hacking, persistent Airway is patent Respiratory effort is even, unlabored, Respiratory pattern is regular, symmetrical. Historical: - Allergies: 04:14 Lisinopril; ha1 - Home Meds: 04:14 losartan 50 mg Oral tablet [Active]; ha1 - PMHx: 04:14 Hypertensive disorder; ha1 - PSHx: 04:14 Appendectomy; foot; ha1 - Infectious Disease History:: Denies. - Social history:: Smoking status: unknown. Screenin:25 [facility] ED Fall Risk Assessment (Adult) History of falling in the last 3 months, kj2 including since admission No falls in past 3 months (0 pts) Confusion or Disorientation No (0 pts) Intoxicated or Sedated No (0 pts) Impaired Gait No (0 pts) Mobility Assist Device Used No (0 pt) Altered Elimination No (0 pt) Score/Fall Risk Level 0 - 2 = Low Risk Maintained a safe environment, Hourly rounding (assess needs \T\ fall precautionary measures) done. Abuse screen: Denies threats or abuse. Denies injuries from another. Nutritional screening: No deficits noted. Tuberculosis screening: No symptoms or risk factors identified. Assessment: 04:23 General: Appears in no apparent distress. Behavior is calm, cooperative. Pain: Denies kj2 pain. Neuro: Level of Consciousness is awake, alert, obeys commands, Oriented to person, place, time, situation. Cardiovascular: Patient's skin is warm and dry. Respiratory: Airway is patent Respiratory effort is even, unlabored. GI: No signs and/or symptoms were reported involving the gastrointestinal system. : No signs and/or symptoms were reported regarding the genitourinary system. 05:21 Reassessment: Patient appears in no apparent distress at this time. Patient and/or kj2 family updated on plan of care and expected duration. Pain level reassessed. Patient is alert, oriented x 3, equal unlabored respirations, skin warm/dry/pink. 06:34 Reassessment: Patient appears in no apparent distress at this time. Patient and/or kj2 family updated on plan of care and expected duration. Pain level reassessed. Patient is alert, oriented x 3, equal unlabored respirations, skin warm/dry/pink. Vital Signs: 04:14 BP 169 / 76; Pulse 62; Resp 17 S; Temp 98(T); Pulse Ox 94% on R/A; Weight 124.74 kg; ha1 Height 5 ft. 7 in. ; 04:29 BP 149 / 84; Pulse 73; Resp 20; Pulse Ox 98% on R/A; kj2 05:21 BP 150 / 73; Pulse 76; Resp 18; Pulse Ox 97% on R/A; kj2 06:34 BP 158 / 83; Pulse 74; Resp 18; Temp 98.4; Pulse Ox 100% on R/A; kj2 04:14 Body Mass Index 43.07 (124.74 kg, 170.18 cm) ha1 [place]man Coma Score: 06:07 Eye Response: spontaneous(4). Motor Response: obeys commands(6). Verbal Response: sp4 oriented(5). Total: 15. ED Course: 04:12 Patient arrived in ED. jj6 04:17 Lilia Rush, LO is Primary Nurse. kj2 04:24 No provider procedures requiring assistance completed. kj2 04:26 Patient has correct armband on for positive identification. Bed in low position. Call kj2 light in reach. Side rails up X2. Provided Education on: call light. 04:33 Arm band placed on Patient placed in an exam room. kj2 04:34 Evangelista Kelly MD is Attending Physician. sp4 04:40 Triage completed. ha1 05:12 Chest Pa And Lat (2 Views) XRAY In Process Unspecified. EDMS 05:57 Influenza Screen (a \T\ B) Sent. kj2 05:57 SARS RAPID Sent. kj2 06:36 Patient did not have IV access during this emergency room visit. kj2 Administered Medications: 05:45 Drug: Dextromethorphan-Guaifenesin PO Liquid 10 mg-100 mg/5 mL 10 ml PO once Route: PO; ha1 06:35 Follow up: Response: No adverse reaction kj2 05:45 Drug: Tessalon Perle PO 200 mg PO once Route: PO; ha1 06:35 Follow up: Response: No adverse reaction kj2 05:45 Drug: Ibuprofen PO 800 mg PO once Route: PO; ha1 06:35 Follow up: Response: No adverse reaction kj2 05:45 Drug: Acetaminophen PO 1000 mg PO once Route: PO; ha1 06:35 Follow up: Response: No adverse reaction kj2 05:51 Drug: Rocephin (cefTRIAXone) IM 1 grams IM once Route: IM; Site: right ventrogluteal; ha1 06:35 Follow up: Response: No adverse reaction kj2 Medication: 04:26 VIS not applicable for this client. kj2 Outcome: 06:05 Discharge ordered by . sp4 06:36 Discharged to home ambulatory, kj2 06:36 Condition: stable 06:36 Discharge instructions given to patient, Instructed on discharge instructions, follow up and referral plans. Demonstrated understanding of instructions, follow-up care, medications, 06:39 Patient left the ED. kj2 Signatures: Dispatcher [employer] EDMS Marisel Caballero jj6 Lila Schulte, LO RN ha1 Evangelista Kelly MD MD sp4 Lilia Rush RN RN kj2
--- NOTE | 2024-05-25 06:06 | EDPHYS ---
Physician Documentation [facility] Name: Victorino Alejo Age: 53 yrs Sex: Male : 1970 Arrival Date: 05/25/2024 Time: 04:10 Bed 19 Private MD: ED Physician Evangelista Kelly HPI: 05/25 04:34 This 53 yrs old Male presents to ER via Unassigned with complaints of Cough. sp4 Historical: - Allergies: 04:14 Lisinopril; ha1 - Home Meds: 04:14 losartan 50 mg Oral tablet [Active]; ha1 - PMHx: 04:14 Hypertensive disorder; ha1 - PSHx: 04:14 Appendectomy; foot; ha1 - Infectious Disease History:: Denies. - Social history:: Smoking status: unknown. ROS: 06:07 Constitutional: Negative for fever, chills, and weight loss, Positive cough , sp4 positive for yellow sputum 06:07 All other systems are negative, Exam: 06:07 Constitutional: This is a well developed, well nourished patient who is awake, alert, sp4 and in no acute distress. Head/Face: Normocephalic, atraumatic. Eyes: Pupils equal round and reactive to light, extra-ocular motions intact. Lids and lashes normal. Conjunctiva and sclera are not injected. Cornea within normal limits. Periorbital areas with no swelling, redness, or edema. ENT: Nares patent. No nasal discharge, no septal abnormalities noted. Tympanic membranes are normal and external auditory canals are clear. Oropharynx with no redness, swelling, or masses, exudates, or evidence of obstruction, uvula midline. Mucous membranes moist. Neck: Trachea midline, no thyromegaly or masses palpated, and no cervical lymphadenopathy. Supple, full range of motion without nuchal rigidity, or vertebral point tenderness. Chest/axilla: Normal chest wall appearance and motion. Nontender with no deformity. No lesions are appreciated. Cardiovascular: Regular rate and rhythm with a normal S1 and S2. No gallops, murmurs, or rubs. Normal PMI, no JVD. No pulse deficits. Respiratory: Lungs have equal breath sounds bilaterally, clear to auscultation and percussion. No rales, rhonchi or wheezes noted. No increased work of breathing, no retractions or nasal flaring. Abdomen/GI: Soft, with normal bowel sounds. No distension or tympany. No guarding or rebound. No evidence of tenderness throughout. Back: No spinal tenderness. No costovertebral tenderness. Skin: Warm, dry with normal turgor. Normal color with no rashes, no lesions, and no evidence of cellulitis. MS/ Extremity: Pulses equal, no cyanosis. Neurovascular intact. Full, normal range of motion. Neuro: Awake and alert, GCS 15, oriented to person, place, time, and situation. Cranial nerves II-XII grossly intact. Motor strength 5/5 in all extremities. Sensory grossly intact. Psych: Awake, alert, with orientation to person, place and time. Behavior, mood, and affect are within normal limits Vital Signs: 04:14 BP 169 / 76; Pulse 62; Resp 17 S; Temp 98(T); Pulse Ox 94% on R/A; Weight 124.74 kg; ha1 Height 5 ft. 7 in. ; 04:29 BP 149 / 84; Pulse 73; Resp 20; Pulse Ox 98% on R/A; kj2 05:21 BP 150 / 73; Pulse 76; Resp 18; Pulse Ox 97% on R/A; kj2 06:34 BP 158 / 83; Pulse 74; Resp 18; Temp 98.4; Pulse Ox 100% on R/A; kj2 04:14 Body Mass Index 43.07 (124.74 kg, 170.18 cm) ha1 [place] Coma Score: 06:07 Eye Response: spontaneous(4). Motor Response: obeys commands(6). Verbal Response: sp4 oriented(5). Total: 15. MDM: 04:35 Medical Screening Exam initiated sp4 05:53 ED course: EXAM DESCRIPTION: Chest Pa And Lat (2 Views) CLINICAL HISTORY: COUGH sp4 COMPARISON: None TECHNIQUE: PA and lateral views of the chest. FINDINGS: Lung volumes adequate. Cardiac silhouette is normal in size. No pneumothorax. No large pleural effusion. No focal consolidation. No acute bony finding. IMPRESSION: No evidence of acute cardiopulmonary disease. . 06:07 Differential Diagnosis: Obstructed Airway Bronchitis Influenza Upper Respiratory sp4 Infection Sinusitis. Data reviewed: vital signs, nurses notes, lab test result(s), radiologic studies, plain films. Consideration of Admission/Observation Escalation of care including admission/observation considered. ED course: stable for discharge home . 05/25 04:35 Order name: SARS RAPID; Complete Time: 06:03 sp4 05/25 04:35 Order name: Influenza Screen (a \T\ B); Complete Time: 06:03 sp4 05/25 04:35 Order name: Chest Pa And Lat (2 Views) XRAY sp4 Administered Medications: 05:45 Drug: Dextromethorphan-Guaifenesin PO Liquid 10 mg-100 mg/5 mL 10 ml PO once Route: PO; ha1 06:35 Follow up: Response: No adverse reaction kj2 05:45 Drug: Tessalon Perle PO 200 mg PO once Route: PO; ha1 06:35 Follow up: Response: No adverse reaction kj2 05:45 Drug: Ibuprofen PO 800 mg PO once Route: PO; ha1 06:35 Follow up: Response: No adverse reaction kj2 05:45 Drug: Acetaminophen PO 1000 mg PO once Route: PO; ha1 06:35 Follow up: Response: No adverse reaction kj2 05:51 Drug: Rocephin (cefTRIAXone) IM 1 grams IM once Route: IM; Site: right ventrogluteal; ha1 06:35 Follow up: Response: No adverse reaction kj2 Disposition Summary: 05/25/24 06:05 Discharge Ordered Notes: Location: Home sp4 Problem: new sp4 Symptoms: have improved sp4 Condition: Stable sp4 Diagnosis - Cough sp4 - Acute pharyngitis, unspecified sp4 Followup: sp4 - With: Private Physician - When: 7 - 10 days - Reason: Recheck today's complaints Discharge Instructions: - Discharge Summary Sheet sp4 - Cough, Adult sp4 Forms: - Work release form bd - Patient Portal Instructions sp4 Prescriptions: - dextromethorphan-guaifenesin 60-1,200 mg Oral Tablet, Extended Release 12 hr - take 1 tablet ORAL route every 12 hours PRN cough; 40 tablet; Refills: 0, sp4 Product Selection Permitted - Zithromax Z-Andriy 250 mg Oral Tablet - take 1 tablet ORAL route as directed for 5 days Day 1 - take two (2) tablets sp4 one time. Day 2, 3, 4 , 5 take one (1) tablet once daily.; 6 tablet; Refills: 0, Product Selection Permitted Signatures: Dispatcher [employer] EDMS Lila Schulte RN RN ha1 Evangelista Kelly MD MD sp4 Lilia Rush RN RN kj2 Corrections: (The following items were deleted from the chart) 04:35 04:35 SARS-COV-2 Antigen Rapid+I.LAB.BRZ ordered. EDMS EDMS 04:35 04:35 Influenza Screen (A \T\ B)+BA.LAB.BRZ ordered. EDMS EDMS 04:35 04:35 Chest Pa And Lat (2 Views)+RAD.RAD.BRZ ordered. EDMS EDMS
[2024-05-25 06:48] VITALS: BP 158/83; TEMP 98.4; O2SAT 100
== END 2024-05-25 06:39 | disposition home or self-care (01) ==
LOC: ER 04:10
DX: R05.9 Cough, unspecified (principal); J02.9 Acute pharyngitis, unspecified; Z11.52 Encounter for screening for COVID-19
CPT/HCPCS: 36415; 87804 ×2; 71046; 87811; J0696

== ENCOUNTER 2024-09-26 12:47 | Emergency (ER) | payer BC ==
--- OUTSIDE RECORDS SUMMARY | 2024-09-26 12:50 | XMS REPORT | Continuity of Care Document ---
Author Name Unknown Address [address] [place] [address] Address [address] [place] [address] 1 [address] [place] [address] Care Team Providers Care Behavioral Health Therapist Name Role Phone Unavailable Unavailable Unavailable Encounters Start Date/Time End Date/Time Encounter Type Admission Type Attending Clinicians Care Facility Care Department Encounter ID Source 2024-03-15 15:15:31 2024-03-15 15:15:31 Outpatient [facility] [id number] Zafar Vargas
[2024-09-26 14:18] LABS: Absolute Lymphocytes (CBC) 1.5 K/uL (0.7-4.9); Absolute Monocytes 1.4 K/uL (0.1-1.3); Absolute Neutrophil 19.4 K/uL (1.8-8.0); Basophils % 0.2 % (0-1.3); Eosinophils % 0.1 % (0-4.4); Hematocrit 41.9 % (39.6-49.0); Lymphocytes % 6.7 % (15.3-44.8); MCH 30.9 pg (27.0-35.0); MCHC 33.4 g/dL (32.0-36.0); MCV 92.3 fL (80-100); MPV 8.2 fL (7.6-11.3); Monocytes % 6.3 % (3.3-12.3); Neutrophils % 86.7 % (41.7-73.7); Platelets 195 thou/uL (152-406); RBC Red Blood Cell Count 4.53 M/uL (4.33-5.43); Red Cell Distribution Width 13.4 % (12.1-15.2)
[2024-09-26 14:38] LABS: Anion Gap 9.4 mEq/L (5.0-15.0); Potassium 3.4 mEq/L (3.5-5.1); Troponin High Sensitivity 7.4 pg/mL (<58.9)
--- NOTE | 2024-09-26 15:12 | RAD REPORT ---
EXAMINATION: CTA CHEST PE CLINICAL INDICATION: Chest pain TECHNIQUE: 100 cc 370 Isovue administered intravenously. This examination was performed according to an angiographic protocol with 3D post-processing. This involves 3D reconstructions, MIPs, volume rendered images and/or shaded surface rendering. One or more of the following dose reduction techniqu es were used: Automated exposure control, adjustment of the mA and/or kV according to patient size, and/or iterative reconstruction. Unless otherwise specified, incidental findings do not require dedic ated imaging follow-up. [id number]. COMPARISON: No prior exam. FINDINGS: The opacification pulmonary arteries mildly suboptimal. No gross pulmonary seen. An aortic aneurysm not noted. No pleural effusion. No pericardial effusion. 5.8 cm right upper lobe Mild fatty liver. Liver appears enlarged IMPRESSION: No gross evidence of a pulmonary embolism Right upper lobe consolidation probably pneumonia. This should be followed until has cleared to help exclude a postobstructive process/underlying mass
--- NOTE | 2024-09-26 15:13 | RAD REPORT ---
Procedure: Chest Single View HISTORY: Chest pain COMPARISON: 2023 FINDINGS: Left lung appears clear of acute infiltrate.. Right upper lobe consolidation No significant pleural effusion noted. The heart is normal size. IMPRESSION: Right upper lobe consolidation probably pneumonia
--- NOTE | 2024-09-26 15:35 | EDPHYS ---
Physician Documentation [facility] Name: Victorino Alejo Age: 54 yrs Sex: Male : 1970 Arrival Date: 09/26/2024 Time: 12:47 Bed 25 Private MD: ED Physician Shine Keller HPI: 09/26 14:05 This 54 yrs old Male presents to ER via Ambulatory with complaints of Chest rn Pain, Breathing Difficulty. 14:05 The patient or guardian reports chest pain that is located primarily in the right rn breast. Onset: yesterday. The pain does not radiate. Associated signs and symptoms: Pertinent positives: shortness of breath, Pertinent negatives: abdominal pain, cough, diaphoresis, syncope, vomiting. The chest pain is described as sharp, stabbing. Duration: The patient or guardian reports multiple episodes, that are intermittent. Modifying factors: The symptoms are alleviated by nothing. the symptoms are aggravated by deep breath. Severity of pain: At its worst the pain was mild in the emergency department the pain is unchanged. The patient has not experienced similar symptoms in the past. Patient reports right-sided chest pain. Worse with deep inspiration. No fever or chills. No hemoptysis. No history of DVT or PE. No recent surgery or trip or immobilization. Denies recent or current illness. No known cardiac or lung disease.. Historical: - Allergies: 13:44 Lisinopril; hb - PMHx: 13:44 Hypertensive disorder; hb - PSHx: 13:44 Appendectomy; foot; hb - Immunization history:: Adult Immunizations up to date. - Infectious Disease History:: Denies. - Social history:: Smoking status: Patient denies any tobacco usage or history of. - Family history:: not pertinent. - Hospitalizations: : No recent hospitalization is reported. ROS: 14:05 Constitutional: Negative for fever, chills, and weight loss, Cardiovascular: Positive rn for right-sided chest pain Respiratory: Positive for shortness of breath and pleuritic chest pain on the right side Abdomen/GI: Negative for abdominal pain, nausea, vomiting, diarrhea, and constipation, MS/Extremity: Negative for injury and deformity, Skin: Negative for injury, rash, and discoloration, Neuro: Negative for headache, weakness, numbness, tingling, and seizure, Exam: 14:05 Constitutional: This is a well developed, well nourished patient who is awake, alert, rn appears anxious. Ambulatory to triage without assistance or difficulty Chest/axilla: Normal chest wall appearance and motion. Nontender with no deformity. Cardiovascular: Regular rate and rhythm. No pulse deficits. Respiratory: Mild tachypnea Abdomen/GI: Soft, non-tender MS/ Extremity: Pulses equal, no cyanosis. Neuro: Awake and alert, GCS 15 Vital Signs: 13:42 BP 120 / 59; Pulse 69; Resp 20; Pulse Ox 95% ; hb 15:07 BP 139 / 64; Pulse 80; Resp 23; Pulse Ox 98% on R/A; jb4 MDM: 13:06 Medical Screening Exam initiated rn 15:33 Differential diagnosis: acute myocardial infarction, pleurisy, pneumonia, pneumothorax. wound care rn Score: History: Slightly Suspicious (0), ECG: Normal (0), Age: > 45 and < 65 years (1), Risk Factors: No Risk Factors Known (0), Troponin: < or = 1 x Normal Limit (0), Total Score = 1. Data reviewed: vital signs, nurses notes, lab test result(s), EKG, radiologic studies, CT scan, plain films, and as a result, I will discharge patient. Counseling: I had a detailed discussion with the patient and/or guardian regarding the historical points, exam findings, and any diagnostic results supporting the discharge/admit diagnosis, lab results, radiology results, the need for outpatient follow up, to return to the emergency department if symptoms worsen or persist or if there are any questions or concerns that arise at home. Special discussion: I discussed with the patient/guardian in detail that at this point there is no indication for admission to the hospital. It is understood, however, that if the symptoms persist or worsen the patient needs to return immediately for re-evaluation. ED course: Patient with likely right lobar pneumonia. No oxygen requirement. Mild tachypnea but no limitation on mobility or exertion. CT PE protocol negative for obstruction or PE. No mass. I have personally reviewed all of the results, including but not limited to blood tests and imaging deemed necessary to safely discharge this patient at this time. All results given to and printed out for patient. I personally went over all the results with the patient and answered all questions. Patient will follow-up with PCP and or specialist as discussed. Return precautions given and understood.. 09/26 13:07 Order name: Basic Metabolic Panel; Complete Time: 14:58 rn 09/26 13:07 Order name: CBC with Diff rn 09/26 13:07 Order name: NT PRO-BNP; Complete Time: 14:58 rn 09/26 13:07 Order name: Troponin HS; Complete Time: 14:58 rn 09/26 15:49 Order name: CBC Smear Scan EDMS 09/26 13:07 Order name: XRAY Chest (1 view); Complete Time: 15:25 rn 09/26 13:39 Order name: CT Chest For PE Angio; Complete Time: 15:25 09/26 13:07 Order name: EKG; Complete Time: 13:07 rn 09/26 13:07 Order name: Cardiac monitoring; Complete Time: 15:06 rn 09/26 13:07 Order name: EKG - Nurse/Tech; Complete Time: 15:06 rn 09/26 13:07 Order name: IV Saline Lock; Complete Time: 14:11 rn 09/26 13:07 Order name: Labs collected and sent; Complete Time: 14:11 rn 09/26 13:07 Order name: O2 Per Protocol; Complete Time: 15:06 rn 09/26 13:07 Order name: O2 Sat Monitoring; Complete Time: 15:06 rn Administered Medications: 15:54 Drug: LevOfloxacin PO 750 mg PO once Route: PO; jb4 15:56 Follow up: Response: Medication administered at discharge. jb4 Disposition Summary: 09/26/24 15:34 Discharge Ordered Notes: Location: Home rn Problem: new rn Symptoms: have improved rn Condition: Stable rn Diagnosis - Pneumonia, unspecified organism rn Followup: rn - With: Private Physician - When: As needed - Reason: Recheck today's complaints, Re-evaluation by your physician Discharge Instructions: - Discharge Summary Sheet rn - Community-Acquired Pneumonia, Adult rn Forms: - Medication Reconciliation Form rn - Antibiotic computer science intern - Prescription Opioid Use rn - Patient Portal Instructions rn - Leadership Thank You Letter rn - Work release form jb4 Prescriptions: - levofloxacin 750 mg Oral tablet - take 1 tablet ORAL route once daily for 7 days; 7 tablet; Refills: 0, Product rn Selection Permitted Signatures: Dispatcher [facility]In[facility] Health CenterShine Ojeda MD MD rn Baxter, Heather RN RN hb Roberto Ac, RN RN jb4
--- NOTE | 2024-09-26 15:35 | ER ---
Nurse's Notes [facility] Name: Victorino Alejo Age: 54 yrs Sex: Male : 1970 Arrival Date: 09/26/2024 Time: 12:47 Bed 25 Private MD: Diagnosis: Pneumonia, unspecified organism Presentation: 09/26 13:40 Chief complaint: Patient states: Right sided chest pain and SOB since yesterday hb morning. Coronavirus screen: Client denies travel out of the [place] in the last 14 days. At this time, the client does not indicate any symptoms associated with coronavirus-19. Ebola Screen: No symptoms or risks identified at this time. Initial Sepsis Screen: Does the patient meet any 2 criteria? No. Patient's initial sepsis screen is negative. Does the patient have a suspected source of infection? No. Patient's initial sepsis screen is negative. Onset of symptoms was September 25, 2024. 13:40 Method Of Arrival: Ambulatory hb 13:44 Risk Assessment: Do you want to hurt yourself or someone else? Patient reports no hb desire to harm self or others. 13:44 Acuity: JIMMY 2 hb Historical: - Allergies: 13:44 Lisinopril; hb - PMHx: 13:44 Hypertensive disorder; hb - PSHx: 13:44 Appendectomy; foot; hb - Immunization history:: Adult Immunizations up to date. - Infectious Disease History:: Denies. - Social history:: Smoking status: Patient denies any tobacco usage or history of. - Family history:: not pertinent. - Hospitalizations: : No recent hospitalization is reported. Screenin:54 [facility] ED Fall Risk Assessment (Adult) History of falling in the last 3 months, jb4 including since admission No falls in past 3 months (0 pts) Confusion or Disorientation No (0 pts) Intoxicated or Sedated No (0 pts) Impaired Gait No (0 pts) Mobility Assist Device Used No (0 pt) Altered Elimination No (0 pt) Score/Fall Risk Level 0 - 2 = Low Risk Oriented to surroundings, Maintained a safe environment. Abuse screen: Denies threats or abuse. Nutritional screening: No deficits noted. Tuberculosis screening: No symptoms or risk factors identified. Assessment: 15:07 General: Appears in no apparent distress. uncomfortable, Behavior is calm, cooperative, jb4 appropriate for age. Pain: Complains of pain in chest Pain does not radiate. Pain currently is 8 out of 10 on a pain scale. Pain began 1 day ago. Is continuous, Aggravated by breathing. Neuro: Level of Consciousness is awake, alert, obeys commands, Oriented to person, place, time, situation. Cardiovascular: Patient's skin is warm and dry. Rhythm is sinus rhythm. Respiratory: Airway is patent Respiratory effort is even, unlabored, shallow, Respiratory pattern is symmetrical, tachypnea. Derm: Skin is intact, Skin is pink, warm \T\ dry. Musculoskeletal: Circulation, motion, and sensation intact. Range of motion: intact in all extremities. Vital Signs: 13:42 BP 120 / 59; Pulse 69; Resp 20; Pulse Ox 95% ; hb 15:07 BP 139 / 64; Pulse 80; Resp 23; Pulse Ox 98% on R/A; jb4 ED Course: 12:50 Patient arrived in ED. al6 13:06 Shine Keller MD is Attending Physician. rn 13:40 EKG done, by ED staff, reviewed by Shine Keller MD. hb 13:44 Triage completed. hb 13:45 Arm band placed on. hb 14:11 Basic Metabolic Panel Sent. bc6 14:11 CBC with Diff Sent. bc6 14:11 NT PRO-BNP Sent. bc6 14:11 Troponin HS Sent. bc6 14:11 Initial lab(s) drawn, by [facility], sent to lab. Inserted saline lock: 20 gauge in right bc6 antecubital area, using aseptic technique. Blood collected. Flushed with 10 mL NS. 14:14 XRAY Chest (1 view) In Process Unspecified. EDMS 14:47 CT Chest For PE Angio In Process Unspecified. EDMS 15:00 Client placed on continuous cardiac and pulse oximetry monitoring. NIBP monitoring jb4 applied. desk monitor on. Pulse ox on. 15:06 Roberto Ac, RN is Primary Nurse. jb4 15:55 Patient has correct armband on for positive identification. Placed in gown. Bed in low jb4 position. Call light in reach. Side rails up X 1. Provided Education on: discharge instructions. 15:56 No provider procedures requiring assistance completed. IV discontinued, intact, jb4 bleeding controlled, No redness/swelling at site. Pressure dressing applied. Patient maintains SpO2 saturation greater than 95% on room air. Administered Medications: 15:54 Drug: LevOfloxacin PO 750 mg PO once Route: PO; jb4 15:56 Follow up: Response: Medication administered at discharge. jb4 Medication: 15:55 VIS not applicable for this client. jb4 Outcome: 15:34 Discharge ordered by . rn 15:56 Discharged to home ambulatory, jb4 15:56 Condition: stable 15:56 Discharge instructions given to patient, Instructed on discharge instructions, follow up and referral plans. medication usage, Demonstrated understanding of instructions, follow-up care, medications, Prescriptions given X 1, 15:56 Patient left the ED. jb4 Signatures: Dispatcher [employer] EDMS Shine Keller MD MD rn Baxter, Heather, RN RN hb Bryson, James, RN RN jb4 Sisi [id number] Leticia [id number] Corrections: (The following items were deleted from the chart) 13:44 13:40 Chief complaint: Patient states: Chest pain hb 15:10 15:07 Pain: Complains of pain in chest Pain does not radiate. Pain currently is 8 out jb4 of 10 on a pain scale. Is continuous, Aggravated by breathing jb4
[2024-09-26] MEDS ORDERED: levoFLOXacin 750 MG TAB ONE (15:46)
[2024-09-26 15:49] LABS: Blood Morphology Comment NOT SEEN (NOT SEEN); Platelet Estimate ADEQ; White Blood Cell Scan OK (OK)
[2024-09-26 16:24] VITALS: BP 139/64; O2SAT 98
--- NOTE | 2024-09-27 10:59 | EKG ---
Test Date: 2024-09-26 Test Time: 13:41:33 Medicaid Specialist: DR Mtz MEASUREMENT RESULTS: Intervals: Rate: 67 ID: [id number] QRSD: 94 QT: 380 QTc: 401 [place]: P: 30 ID: [id number] QRS: -16 T: 29 INTERPRETIVE STATEMENTS: Normal sinus rhythm Inferior infarct, age undetermined Abnormal ECG Compared to ECG 05/19/2024 19:57:53 Myocardial infarct finding now present Right superior axis no longer present Electronically Signed On 09-27-24 10:56:48 CDT by Rancho Watson
== END 2024-09-26 15:56 | disposition home or self-care (01) ==
LOC: ER 12:47
DX: J18.9 Pneumonia, unspecified organism (principal); I10 Essential (primary) hypertension
CPT/HCPCS: 93005; 85025; 80048; 36415; 84484; 83880; 71275; 71045; 99284; Q9967